=== PATIENT | male | born 1960 | race Caucasian/White ===

== ENCOUNTER 2024-06-06 23:42 | Emergency (ER) | payer MEDICAID, SELFPAY ==
[2024-06-06 23:44] VITALS: PULSE 84; RESP 16; O2SAT 98; BMI 21.9
[2024-06-06 23:50] VITALS: BP 160/84; PULSE 95; RESP 18; TEMP 37.1; O2SAT 98
--- NOTE | 2024-06-06 23:51 | PD.EDABDPN ---
ED Abdominal Pain RME/HPI General Chief Complaint: Abdominal Pain Stated complaint: ABDOMINAL DISTENSION Time seen by provider: 06/06/24 23:51 Arrival date/time: 06/06/24 23:42 RME / HPI RME / HPI narrative: This section includes all my notes and documentations, including HPI, PE, and ED course. Ramiro Castillo MD HPI: 64-year-old male here with a couple day history of feeling distended belly, worse tonight. He reports no pain. No nausea or vomiting. Eating normally. No other complaints. ROS: All negative except as documented in HPI. Physical Exam: General: Alert and oriented. No acute distress when remaining still. Eyes: Conjunctivae and lids clear. ENT: No nasal congestion. Neck: Supple. Heart: RRR. Lungs: No respiratory distress. Good air movement. No rhonchi, wheezing, rales. Abdomen: Soft and nontender. Normal bowel sounds. No distension. No rebound or guarding. Back: No CVA tenderness. Skin: Warm and dry. Neuro: Alert and oriented X 3. I reviewed all diagnostic test results. My interpretation of the KUB is constipation. Blood tests unremarkable. At this point, diagnoses include constipation. Recommended supportive care. Based on my best medical judgment, made decision no further evaluation or treatment indicated at this time. Patient understands and agrees to the discharge instructions customized and printed, see below. Discharge instructions from Dr. Castillo printed for you: ?After evaluation, you are feeling distended belly due to constipation (too much poop in your colon). ?Take Senokot S (not plain Senokot, OTC so prescription not needed) four pills, at bedtime as needed.? Add milk of magnesia as needed. May take a few days but this will help clear out your bowels. ?To help current constipation and prevent future constipation, increase oral fluid because dehydration cause severe constipation.? Maintain clear urine.? If dark or yellow, increase oral fluid. ?And every day, increase fresh fruits and fresh vegetables and physical exercise. ?See a private doctor on 06/12/2024 for recheck and further care. To make sure there is no serious underlying abdominal condition, ask to help you get more care not available here in the ER.? Such as EGD or scoping of your stomach, colonoscopy or scoping the colon, and a referral to see a sanding machine tender automatic. ?Seek immediate medical care with worsening or with any concerns. Ramiro Castillo MD Related Data Home Medications ?Medication ?Instructions ?Recorded ?Confirmed metformin 500 mg tablet 500 mg PO QDAY #0 tabs 09/07/16 12/15/17 (Glucophage) sitagliptin phosphate 100 mg 100 mg PO QDAY #0 tabs 09/07/16 12/15/17 tablet (Januvia) Previous Rx's ?Medication ?Instructions ?Recorded ibuprofen 600 mg tablet 600 mg PO Q6HR PRN PAIN #25 tabs 09/07/16 cephalexin 500 mg capsule (Keflex) 500 mg PO QID #28 caps 12/15/17 ibuprofen 600 mg tablet 600 mg PO TID #21 tabs 12/15/17 meloxicam 7.5 mg tablet 7.5 mg PO QDAY #14 tabs 01/13/22 magnesium hydroxide 2,400 mg/10 mL 30 ml PO QDAY PRN constipation #60 06/07/24 oral suspension (Milk Of Magnesia mL Concentrated) sennosides 8.6 mg-docusate sodium 4 tab-cap (4 x 8.6-50 mg) PO QDAY 06/07/24 50 mg tablet (Senokot-S) PRN constipation #20 tabs Allergies Allergy/AdvReac Type Severity Reaction Status Date / Time No Known Allergies Allergy Verified 01/13/22 10:14 Course Quality Measures none Orders Category Date Time Status KUB [XR abdomen 1V] Stat Exams 06/07/24 00:15 Completed Amylase Stat Lab 06/06/24 23:52 Completed Bilirubin,Direct Stat Lab 06/06/24 23:52 Completed CBC Stat Lab 06/06/24 23:52 Completed CMP [Comprehensive Metabolic Panel] Stat Lab 06/06/24 23:52 Completed Lipase Stat Lab 06/06/24 23:52 Completed Magnesium Stat Lab 06/06/24 23:52 Completed Vital Signs Vital signs: Vital Signs Temperature 98.8 F 06/06/24 23:50 Pulse Rate 95 06/06/24 23:50 Respiratory Rate 18 06/06/24 23:50 Blood Pressure 160/84 H 06/06/24 23:50 Pulse Oximetry (%) 98 06/06/24 23:50 Oxygen Delivery Method Room Air 06/06/24 23:50 Abdominal Pain MDM Patient data External records reviewed:: [facility] previous records Clinical information provided by:: patient Social determinants that could affect healthcare access:: none Patient has the following chronic illnesses:: DM How is presenting disease/condition affected by chronic disease/condition?: uneffected by Evaluation data The following diagnostics were reviewed and interpreted by me:: lab results and radiology exam(s) Lab and/or radiology exams considered but not ordered:: None Interpretation Summary: Constipation Medications / Prescriptions Medications or Prescriptions considered but not ordered:: None Medication administrations:: None Consultations Consultation(s) initiated? (list below): No Diagnosis Differential diagnosis abdominal pain: constipation, gastroenteritis and other (Psychogenic) Most likely diagnosis given after review of the tests above:: Constipation Admission Indicated Admission indicated?: not indicated Explain why admission is indicated or not indicated:: There was no indication for admission. Admission Request Was there a request for admission?: No Disposition Plan Disposition Plan: Discharge Discharge Attestation Discharge Attestation: The patient and all family members were given an opportunity to ask questions and understood the discharge instructions. Discharge instructions specifically effects, indications for sooner follow up or return to the emergency department, and the expected course of current diagnosis. Patient condition: Stable Discharge Plan Plan Patient Disposition: HOME (Self Care) Prescriptions/Referrals Prescriptions/Med Rec: New magnesium hydroxide [Milk Of Magnesia Concentrated] 2,400 mg/10 mL suspension 30 ml PO QDAY PRN (Reason: constipation) Qty: 60 0RF sennosides-docusate sodium [Senokot-S] 8.6-50 mg tablet 4 tab-cap PO QDAY PRN (Reason: constipation) Qty: 20 0RF No Action metformin [Glucophage] 500 MG tablet 500 mg PO QDAY Qty: 0 ibuprofen 600 MG tablet 600 mg PO Q6HR PRN (Reason: PAIN) Qty: 25 0RF sitagliptin phosphate [Januvia] 100 MG tablet 100 mg PO QDAY Qty: 0 cephalexin [Keflex] 500 mg capsule 500 mg PO QID Qty: 28 0RF ibuprofen 600 mg tablet 600 mg PO TID Qty: 21 0RF meloxicam 7.5 mg tablet 7.5 mg PO QDAY Qty: 14 0RF Referrals: No Primary/Family,Physician [Primary Care Provider] - In 1 week Problem List Clinical Impression: Constipation Patient/Caregiver Discharge Instructions Discharge Activity: activity as tolerated Education Materials: ED Constipation (Adult) Additional Instructions: Discharge instructions from Dr. Castillo printed for you: ?After evaluation, you are feeling distended belly due to constipation (too much poop in your colon). ?Take Senokot S (not plain Senokot, OTC so prescription not needed) four pills, at bedtime as needed.? Add milk of magnesia as needed. May take a few days but this will help clear out your bowels. ?To help current constipation and prevent future constipation, increase oral fluid because dehydration cause severe constipation.? Maintain clear urine.? If dark or yellow, increase oral fluid. ?And every day, increase fresh fruits and fresh vegetables and physical exercise. ?See a private doctor on 06/12/2024 for recheck and further care. To make sure there is no serious underlying abdominal condition, ask to help you get more care not available here in the ER.? Such as EGD or scoping of your stomach, colonoscopy or scoping the colon, and a referral to see a sanding machine tender automatic. ?Seek immediate medical care with worsening or with any concerns. Print Language: Nepalese Stand Alone Forms: [employer] Award Info., Patient Portal Info Letter
--- NOTE | 2024-06-07 00:15 | XR_ITS ---
Examination: Abdomen AP single view Technique: AP portable supine abdomen, single view Exam date and time: June 07, 2024 at 0016 hours INDICATIONS: Distended abdomen this week FINDINGS: Large amounts of stool throughout the colon No obstruction No free air Intact osseous structures IMPRESSION: Large amount of stool throughout the colon
[2024-06-07 00:17] LABS: Basophils % (Auto) 0 % (0-2.5); Eosinophils # (Auto) 0.1 Thou/mm3 (0.0-0.5); Eosinophils % (Auto) 1 % (0-10); Hematocrit 42.7 % (41.0-53.0); Immature Granulocytes % (Auto) 0 % (0-0); Immature Granulocytes Auto 0.03 Thou/mm3 (0.00-0.00); Lymphocytes # (Auto) 2.4 Thou/mm3 (1.0-4.8); Lymphocytes % (Auto) 19 % (10-50); Mean Corpuscular HGB Conc 35.1 g/dl (31.0-37.0); Mean Corpuscular Hemoglobin 29.4 pg (25.0-35.0); Mean Corpuscular Volume 84 fL (80-100); Monocytes # (Auto) 0.9 Thou/mm3 (0.0-0.8); Monocytes % (Auto) 7 % (0-12); Neutrophils # (Auto) 8.9 Thou/mm3 (1.8-7.7); Neutrophils % (Auto) 72 % (37-80); Nucleated Red Blood Cell % 0 /100 WBC (0); Platelet Count 306 Thou/mm3 (140-440); RDW Standard Deviation 40.4 fL (35.1-43.9); Red Blood Count 5.11 Miln/mm3 (4.50-5.90); White Blood Count 12.3 Thou/mm3 (3.8-10.6)
[2024-06-07 00:40] LABS: Alanine Aminotransferase 17 U/L (10-49); Albumin, Serum 4.4 gm/dL (3.4-4.8); Albumin/Globulin Ratio 1.3 (1.2-2.2); Alkaline Phosphatase 96 U/L (46-116); Anion Gap 10 (7-16); Aspartate Amino Transferase 20 U/L (0-34); BUN/Creatinine Ratio 17 Ratio (12-20); Bilirubin,Direct 0.2 mg/dL (0.0-0.3); Bilirubin,Total 0.8 mg/dL (0.3-1.2); Blood Urea Nitrogen 20 mg/dL (9-23); Carbon Dioxide 25.7 mMol/L (20.0-31.0); Chloride 104 mMol/L (98-107); Creatinine (Component) 1.2 mg/dL (0.6-1.3); Estimated Creatinine Clearance 52.4 mL/min (>60); Globulin 3.4 gm/dL (2.3-3.5); Glucose 123 mg/dL (74-106); Lipase 32 U/L (12-53); Osmolality,Calculated 283 (275-295); Potassium 4.2 mMol/L (3.4-5.1); Sodium 140 mMol/L (136-145); Total Protein 7.8 gm/dL (5.7-8.2); eGFR > 60 See Note
[2024-06-07 00:53] LABS: Amylase 70 U/L (30-118)
== END 2024-06-07 01:23 | disposition home or self-care (01) ==
PROVIDERS: Emergency Provider Emergency Medicine
DX: K59.00 Constipation, unspecified (principal)
CPT/HCPCS: 36415; 74018; 80053; 82150; 82248; 83690; 83735; 85025; 99283

== ENCOUNTER 2024-06-16 18:09 | Emergency (ER) | payer MEDICAID, SELFPAY ==
[2024-06-16 18:20] VITALS: PULSE 98; RESP 16; O2SAT 99
[2024-06-16 19:54] VITALS: BP 143/81; PULSE 84; RESP 18; TEMP 36.9; O2SAT 96
[2024-06-16] MEDS: LACTULOSE SYRUP 20 GM/30 ML UDC PO (20:32)
--- NOTE | 2024-06-17 04:06 | PD.EDADULT ---
ED General RME/HPI General Chief complaint: General Adult/Misc Complain Stated complaint: ABDOMINAL PROBLEMS Time Seen by Provider: 06/16/24 20:09 Arrival date/time: 06/16/24 18:09 64M history of DM presents to ED with several weeks of constipation. Patient was here 1 week ago and given laxatives, which helped some. Patient had a BM today, but it was only a little. Patient denies N/V, ab pain, and history of ab surgery. Limitations: no limitations Related Data Home Medications ?Medication ?Instructions ?Recorded ?Confirmed metformin 500 mg tablet 500 mg PO QDAY #0 tabs 09/07/16 12/15/17 (Glucophage) sitagliptin phosphate 100 mg 100 mg PO QDAY #0 tabs 09/07/16 12/15/17 tablet (Januvia) Previous Rx's ?Medication ?Instructions ?Recorded ibuprofen 600 mg tablet 600 mg PO Q6HR PRN PAIN #25 tabs 09/07/16 cephalexin 500 mg capsule (Keflex) 500 mg PO QID #28 caps 12/15/17 ibuprofen 600 mg tablet 600 mg PO TID #21 tabs 12/15/17 meloxicam 7.5 mg tablet 7.5 mg PO QDAY #14 tabs 01/13/22 magnesium hydroxide 2,400 mg/10 mL 30 ml PO QDAY PRN constipation #60 06/07/24 oral suspension (Milk Of Magnesia mL Concentrated) sennosides 8.6 mg-docusate sodium 4 tab-cap (4 x 8.6-50 mg) PO QDAY 06/07/24 50 mg tablet (Senokot-S) PRN constipation #20 tabs peg 3350-electrolytes 236 240 ml PO Q10M #4,000 mL 06/16/24 gram-22.74 gram-6.74 gram-5.86 gram solution (Golytely) Allergies Allergy/AdvReac Type Severity Reaction Status Date / Time No Known Allergies Allergy Verified 06/16/24 18:23 Review of Systems Review of Systems Systems Reviewed: All systems reviewed, normal except as documented Constitutional Constitutional: Reports system reviewed and no additional complaints, except as documented, Denies fever(s) and Denies headache(s) ENT Ears, Nose, Mouth, and Throat: Denies disequilibrium and Denies headache(s) Cardiovascular Cardiovascular: Reports system reviewed and no additional complaints, except as documented, Denies chest pain and Denies dyspnea Respiratory Respiratory: Reports system reviewed and no additional complaints, except as documented, Denies cough and Denies dyspnea Gastrointestinal Gastrointestinal: Reports system reviewed and no additional complaints, except as documented, Reports as per HPI, Denies abdominal pain, Reports constipation, Denies nausea and Denies vomiting Neurologic Neurologic: Reports system reviewed and no additional complaints, except as documented, Denies confusion, Denies disequilibrium and Denies headache(s) Psychiatric Psychiatric: Denies confusion Past Medical History Past Medical History CARDIAC: Negative Cardiac Disorders or Congestive Heart Failure RESPIRATORY: Negative Chronic Obstructive Pulmonary Disease (COPD) GENITOURINARY: Negative Renal Disease ENDOCRINE: Positive Endocrine Disorders and Diabetes Mellitus Type 2; Negative Diabetes Mellitus Type 1 Surgical History SURGICAL: Positive Eye Surgery (left eye x's 18) and Tonsillectomy Social History SMOKING STATUS: Never smoker ED Exam General Limitations: Present no limitations General appearance: Present alert and in no apparent distress Head Head exam: Present atraumatic Eye Eye exam: Present normal appearance, PERRL and EOMI ENT ENT exam: Present normal exam, normal oropharynx and mucous membranes moist Neck Neck exam: Present normal inspection, full ROM and trachea midline Chest Chest inspection: Present normal inspection and symmetric chest wall rise Respiratory Respiratory exam: Present normal lung sounds bilaterally Cardiovascular Cardiovascular exam: Present regular rate, normal rhythm and normal heart sounds Abdominal Exam Abdominal exam: Present soft and normal bowel sounds Extremities Exam Extremities exam: Present normal inspection and full ROM Back Exam Back exam: Present normal inspection and full ROM Neurological Exam Neurological exam: Present alert, oriented X3 and CN II-XII intact Psychiatric Psychiatric exam: Present normal affect and normal mood Skin Skin exam: Present warm, dry, intact and normal color Course Course Course Narrative: 64M with history of DM presents to ED with several weeks of constipation. Patient was here 1 week ago and given laxatives, which helped some. Patient had a BM today, but it was only a little. Patient denies N/V, ab pain, and history of ab surgery. Physical exam reveals no ab tenderness. Patient is afebrile, calm, and alert. Additional meds and enema given here allowed for some BM. Patient is ready to go home with additional meds. Will trial Golytely. Quality Measures none Orders Category Date Time Status Enema Administration NOW Care 06/16/24 20:10 Completed Lactulose Syrup [Enulose Syrup] Med 06/16/24 20:10 Discontinued 20 gm PO X1 ONE Vital Signs Vital signs: Vital Signs Temperature 98.4 F 06/16/24 19:54 Pulse Rate 84 06/16/24 19:54 Respiratory Rate 18 06/16/24 19:54 Blood Pressure 143/81 H 06/16/24 19:54 Pulse Oximetry (%) 96 06/16/24 19:54 Oxygen Delivery Method Room Air 06/16/24 19:54 O2 at 96% on RA and WNLs MDM Patient data External records reviewed:: [facility] previous records Clinical information provided by:: patient Social determinants that could affect healthcare access:: none Patient has the following chronic illnesses:: DM How is presenting disease/condition affected by chronic disease/condition?: exacerbated by Evaluation data The following diagnostics were reviewed and interpreted by me:: other (specify) (none) Lab and/or radiology exams considered but not ordered:: not ordered Interpretation Summary: n/a Medications Medications considered but not ordered:: ordered Medication administrations:: Medication Administration History Discontinued Medications Lactulose (Lactulose Syrup 20 Gm/30 Ml Udc) 20 gm PO X1 ONE; Protocol Stop: 06/16/24 20:11 Last Admin: 06/16/24 20:32 Dose: 20 gm Documented By: above Consultations Consultation(s) initiated? (list below): No Diagnosis Differential Diagnosis ED Complaint MDM: constipation, ab pain, SBO Most likely diagnosis given after review of the tests above:: constipation Admission Indicated Admission indicated?: not indicated Explain why admission is indicated or not indicated:: outpatient Admission Request Was there a request for admission?: No Disposition Plan Disposition Plan: Discharge Discharge Attestation Discharge Attestation: The patient and all family members were given an opportunity to ask questions and understood the discharge instructions. Discharge instructions specifically effects, indications for sooner follow up or return to the emergency department, and the expected course of current diagnosis. Patient condition: Stable Medical Decision Making Differential Diagnosis Differential Diagnosis: constipation, ab pain, SBO Discharge Plan Plan Patient Disposition: HOME (Self Care) Disposition Comment: Stable Prescriptions/Referrals Prescriptions/Med Rec: New peg 3350-electrolytes [Golytely] 236-22.74-6.74 -5.86 gram recon soln 240 ml PO Q10M Qty: 4000 0RF Rx Instructions: until fecal effluent is clear No Action metformin [Glucophage] 500 MG tablet 500 mg PO QDAY Qty: 0 ibuprofen 600 MG tablet 600 mg PO Q6HR PRN (Reason: PAIN) Qty: 25 0RF sitagliptin phosphate [Januvia] 100 MG tablet 100 mg PO QDAY Qty: 0 cephalexin [Keflex] 500 mg capsule 500 mg PO QID Qty: 28 0RF ibuprofen 600 mg tablet 600 mg PO TID Qty: 21 0RF magnesium hydroxide [Milk Of Magnesia Concentrated] 2,400 mg/10 mL suspension 30 ml PO QDAY PRN (Reason: constipation) Qty: 60 0RF sennosides-docusate sodium [Senokot-S] 8.6-50 mg tablet 4 tab-cap PO QDAY PRN (Reason: constipation) Qty: 20 0RF meloxicam 7.5 mg tablet 7.5 mg PO QDAY Qty: 14 0RF Referrals: No Primary/Family,Physician [Primary Care Provider] - In 1 week Problem List Clinical Impression: Constipation Patient/Caregiver Discharge Instructions Education Materials: ED Constipation (Adult) Additional Instructions: Please follow-up with PCP within 24-48 hours and return immediately if symptoms worsen. Print Language: Ugandan Stand Alone Forms: Patient Portal Info Letter PA/MANUFACTURING QUALITY MANAGER Supervising Physician LOLIS/ROSARIO Supervising Physician: Dr. Alvarez
== END 2024-06-16 22:35 | disposition home or self-care (01) ==
PROVIDERS: Emergency Provider Emergency Medicine
DX: K59.00 Constipation, unspecified (principal); E11.9 Type 2 diabetes mellitus without complications
CPT/HCPCS: 99283; A9270

== ENCOUNTER 2024-06-26 03:21 | Inpatient (IN) | payer MEDICAID, SELFPAY ==
[2024-06-26] VITALS (11 sets, daily range): BP systolic 122–156; BP diastolic 73–89; PULSE 54–86; RESP 17–93; TEMP 36.3–37.2; O2SAT 95–100; BMI 22.3
--- NOTE | 2024-06-26 03:35 | XR_ITS ---
Examination: PA lateral chest 2 views Technique: Upright PA lateral chest 2 views Exam date and time: June 26, 2024 0347 hrs. Comparison January 13, 2022 Indications: Shortness of breath today Findings: Cavitary-appearing parenchymal disease in the upper lung zones Mild prominence left ventricle Moderate osteopenia Impression: Cavitary parenchymal disease in the upper lung zones, differential would include active tuberculosis, consider CT chest without contrast follow-up
--- NOTE | 2024-06-26 03:35 | XR_ITS ---
Examination: Abdomen AP single view Technique: AP portable supine abdomen, single view Exam date and time: June 26, 2024 at 0344 hrs. Indications: Abdominal pain constipation beginning 3 days ago. Findings: Abundant stool throughout the colon I do not visualize a definite small bowel obstruction pattern No free air Impression: Abundant stool throughout the colon
--- NOTE | 2024-06-26 03:35 | EKG_ITS ---
[facility] Test Date: 2024-06-26 Pat Name: GUERO SNOW Department: Room: - Gender: Male Data Acquisition Technician: : 1960 Requested By: Aaron Woods Order Number: [id number] Reading MD: Aaron Woods Measurements Intervals Tell Rate: 70 P: 6 SD: 176 QRS: -5 QRSD: 82 T: -14 QT: 368 QTc: 398 Interpretive Statements SINUS RHYTHM No previous ECG available for comparison /store/S0/[id number]/ecg/[id number].pdf
--- NOTE | 2024-06-26 03:36 | PD.EDRME ---
Rapid Medical Screening Exam RME Arrival date/time: 06/26/24 03:21 64 yo m present to ED for c/o of sob, constipation I have greeted and performed a focused initial assessment of this patient. A comprehensive ED assessment and evaluation of the patient, analysis of all test results, and completion of the medical decision making process will be conducted by additional ED providers. Chief Complaint: General Adult/Misc Complain Time Seen by Provider: 06/26/24 03:25
[2024-06-26] MEDS: ALBUTEROL/IPRATROPIUM (Duoneb) RT SOL 3 ML NEBU INH (04:12)
--- NOTE | 2024-06-26 05:08 | PRELIM_ITS ---
Radiographs of the chest (2 views). June 26, 2024 0344 hours Clinical history: Shortness of breath Comparison: None. Findings: The heart, mediastinum and pulmonary gildardo are unremarkable. No pneumothorax. Probable cavitated lesion in the right upper lung. Left upper lung consolidation. There is no pleural effusion. The bony thorax is unremarkable. Impression: Probable cavitated lesion in the right upper lung, correlation with CT is recommended. Left upper lung consolidation suspicious for pneumonia. Discussion Details: Results verbally communicated to : Dr. Ferrell at 04:56 AM 06/26/2024 Report Electronically Signed By: Michel Rizvi 06/26/2024 5:07:11 AM [EST]
--- NOTE | 2024-06-26 05:17 | PRELIM_ITS ---
Radiograph of the abdomen (single view). June 26, 2024 at 0344 hours Clinical history: Abdominal pain, constipation for 3 days. Comparison: No prior study is available for comparison. Findings: Scattered air-fluid levels throughout the abdomen. There is no free intraperitoneal air. The osseous structures are unremarkable. Impression: Bowel findings are compatible with enteritis versus developing small bowel obstruction. Consider correlation with CT of the abdomen and pelvis. Report Electronically Signed By: Michel Rizvi 06/26/2024 5:16:49 AM [EST]
[2024-06-26 05:25] LABS: Basophils % (Auto) 0 % (0-2.5); Eosinophils # (Auto) 0.2 Thou/mm3 (0.0-0.5); Eosinophils % (Auto) 2 % (0-10); Hematocrit 43.3 % (41.0-53.0); Hemoglobin 14.6 g/dL (13.5-16.0); Immature Granulocytes % (Auto) 0 % (0-0); Immature Granulocytes Auto 0.04 Thou/mm3 (0.00-0.00); Lymphocytes # (Auto) 2.8 Thou/mm3 (1.0-4.8); Lymphocytes % (Auto) 25 % (10-50); Mean Corpuscular HGB Conc 33.7 g/dl (31.0-37.0); Mean Corpuscular Hemoglobin 29.4 pg (25.0-35.0); Mean Corpuscular Volume 87 fL (80-100); Monocytes # (Auto) 0.9 Thou/mm3 (0.0-0.8); Monocytes % (Auto) 8 % (0-12); Neutrophils # (Auto) 7.3 Thou/mm3 (1.8-7.7); Neutrophils % (Auto) 65 % (37-80); Nucleated Red Blood Cell % 0 /100 WBC (0); Platelet Count 314 Thou/mm3 (140-440); RDW Standard Deviation 40.5 fL (35.1-43.9); Red Blood Count 4.96 Miln/mm3 (4.50-5.90); White Blood Count 11.2 Thou/mm3 (3.8-10.6)
[2024-06-26 05:53] LABS: B-Type Natriuretic Peptide < 20 pg/mL (0-100)
[2024-06-26 05:56] LABS: Alanine Aminotransferase 21 U/L (10-49); Albumin, Serum 4.2 gm/dL (3.4-4.8); Albumin/Globulin Ratio 1.4 (1.2-2.2); Alkaline Phosphatase 92 U/L (46-116); Anion Gap 9 (7-16); Aspartate Amino Transferase 20 U/L (0-34); BUN/Creatinine Ratio 9 Ratio (12-20); Bilirubin,Total 0.6 mg/dL (0.3-1.2); Blood Urea Nitrogen 11 mg/dL (9-23); Calcium 9.1 mg/dL (8.3-10.6); Calcium (Corrected) 9.1 mg/dL (8.5-10.1); Carbon Dioxide 26.7 mMol/L (20.0-31.0); Chloride 105 mMol/L (98-107); Creatinine (Component) 1.2 mg/dL (0.6-1.3); Estimated Creatinine Clearance 53.2 mL/min (>60); Glucose 154 mg/dL (74-106); Lipase 32 U/L (12-53); Osmolality,Calculated 283 (275-295); Sodium 141 mMol/L (136-145); Total Protein 7.2 gm/dL (5.7-8.2); Troponin I < 0.020 ng/mL (0.0-0.045); eGFR > 60 See Note
--- NOTE | 2024-06-26 06:52 | XR_ITS ---
Examination: CT chest, without intravenous contrast. Sagittal and coronal 2-D reconstructions. Exam date and time: June 26, 2024 1908 hrs. Indications: Shortness of breath fever today CTDI:vol (mGy) 10.7 DLP: (mGycm) 380 Technique: Multiple 3.0 mm axial sections of the chest to been obtained. Bone and lung density settings are obtained. Sagittal and coronal 2-D reconstructions have been obtained. Low dose protocols were performed. One or more of the following dose reduction techniques were used; automated exposure control, adjustment of the mA and/or KV according to patient size, use of iterative reconstruction technique. Findings: No thoracic aortic aneurysm dilatation Pulmonary artery segments are not enlarged Cavitary parenchymal disease at both lung apices, the largest cavity 17 mm in the left upper lobe Dilated bronchi in the upper lobes Scarring in the lingular segment No pleural disease No pulmonary edema No focal liver or splenic lesion Contracted gallbladder No pancreatic mass End-stage atrophic left kidney The osseous structures are intact Impression: Cavitary parenchymal disease at both lung apices, likely infectious in etiology, highest on the differential list is active tuberculosis
--- NOTE | 2024-06-26 07:00 | PC.NURSE ---
ASSUMED CARE OF PT. PT IS BEING TAKEN TO CT VIA W/C.
--- NOTE | 2024-06-26 07:11 | PD.EDABDPN ---
ED Abdominal Pain RME/HPI General Chief Complaint: General Adult/Misc Complain Stated complaint: constipation Time seen by provider: 06/26/24 03:25 Arrival date/time: 06/26/24 03:21 RME / HPI RME / HPI narrative: 06/26/24 03:21 64 yo m present to ED for c/o of sob, constipation I have greeted and performed a focused initial assessment of this patient. A comprehensive ED assessment and evaluation of the patient, analysis of all test results, and completion of the medical decision making process will be conducted by additional ED providers. DR. TERRELL MAIN ED EVALUATION: 64 year old male presents to the Emergency Department [facility] with complaints of abdominal pain with constipation. Patient sates he is only short of breath because his belly is so full . No fevers or chills. No other symptoms reported at this time. PMHx: Diabetes Social Hx: No tobacco, alcohol, or substance use. Related Data Home Medications ?Medication ?Instructions ?Recorded ?Confirmed metformin 500 mg tablet 500 mg PO QDAY #0 tabs 09/07/16 12/15/17 (Glucophage) sitagliptin phosphate 100 mg 100 mg PO QDAY #0 tabs 09/07/16 12/15/17 tablet (Januvia) Previous Rx's ?Medication ?Instructions ?Recorded ibuprofen 600 mg tablet 600 mg PO Q6HR PRN PAIN #25 tabs 09/07/16 cephalexin 500 mg capsule (Keflex) 500 mg PO QID #28 caps 12/15/17 ibuprofen 600 mg tablet 600 mg PO TID #21 tabs 12/15/17 meloxicam 7.5 mg tablet 7.5 mg PO QDAY #14 tabs 01/13/22 magnesium hydroxide 2,400 mg/10 mL 30 ml PO QDAY PRN constipation #60 06/07/24 oral suspension (Milk Of Magnesia mL Concentrated) sennosides 8.6 mg-docusate sodium 4 tab-cap (4 x 8.6-50 mg) PO QDAY 06/07/24 50 mg tablet (Senokot-S) PRN constipation #20 tabs peg 3350-electrolytes 236 240 ml PO Q10M #4,000 mL 06/16/24 gram-22.74 gram-6.74 gram-5.86 gram solution (Golytely) Allergies Allergy/AdvReac Type Severity Reaction Status Date / Time No Known Allergies Allergy Verified 06/16/24 18:23 Review of Systems Review of Systems Systems Reviewed: All systems reviewed, normal except as documented Past Medical History Past Medical History ENDOCRINE: Positive Endocrine Disorders and Diabetes Mellitus Type 2 Surgical History SURGICAL: Positive Eye Surgery and Tonsillectomy Social History SMOKING STATUS: Never smoker SUBSTANCE USE: does not use ALCOHOL: Never ED Exam Narrative Physical exam: GENERAL APPEARANCE: alert and oriented x 4, well-developed, well-nourished, no acute distress VITALS: All vitals were reviewed and the pulse ox is 95% on room air, which is normal according to my interpretation. HEENT: Normocephalic, atraumatic; pupils equal, round, reactive to light; EOMI; mucous membranes pink, moist; oropharynx clear NECK: Supple LUNGS: CTABL; no wheezes, no rales, no rhonchi HEART: Regular rate, regular rhythm; normal S1, S2; no murmurs ABDOMEN: mildly distended; normal BS; soft, no tenderness, no guarding, no rebound; no masses, no organomegaly, no hernia BACK: no CVA tenderness EXTREMITIES: atraumatic; no edema NEUROLOGIC: awake; alert and oriented x4; cranial nerves II-XII grossly intact; no focal sensory or motor deficits PSYCHIATRIC: appropriate mood and affect SKIN: warm, dry, normal color; no rashes Course Quality Measures none Orders Category Date Time Status Admit to Inpatient Status Routine Admission 06/26/24 09:25 Active Patient Condition Routine Admission 06/26/24 09:[address] Screening NOW Care 06/26/24 05:38 Completed EKG (ED ONLY) *Do not use* NOW Care 06/26/24 03:35 Completed Notify provider NEEDED Care 06/26/24 09:[address] chest wo con Stat Exams 06/26/24 06:52 Completed EKG (ED Only) Stat Exams 06/26/24 03:35 Draft KUB [XR abdomen 1V] Stat Exams 06/26/24 03:35 Completed XR chest 2V Stat Exams 06/26/24 03:35 Completed BNP [B-Type Natriuretic Peptide] Stat Lab 06/26/24 04:36 Completed CBC Stat Lab 06/26/24 04:36 Completed CMP [Comprehensive Metabolic Panel] Stat Lab 06/26/24 04:36 Completed Cocci Serology, Unk History Stat Lab 06/26/24 06:01 Received Lipase Stat Lab 06/26/24 04:36 Completed Quantiferon-TB* Stat Lab 06/26/24 06:01 Received Troponin I Stat Lab 06/26/24 04:36 Completed Albuterol/Ipratr Rt Tosin [Duoneb Rt Tosin] Med 06/26/24 03:38 Discontinued 3 ml INH X1 ONE Code Status Routine Oth 06/26/24 09:24 Ordered Vital Signs Vital signs: Vital Signs Temperature 98.5 F 06/26/24 03:37 Pulse Rate 75 06/26/24 03:37 Respiratory Rate 17 06/26/24 03:37 Blood Pressure 156/83 H 06/26/24 03:37 Pulse Oximetry (%) 99 06/26/24 03:37 Oxygen Delivery Method Room Air 06/26/24 03:37 Abdominal Pain MDM MDM Narrative MDM Narrative:: I, Caridad Garcia, alber scribing for and in the presence of Dr. Terrell. Patient data External records reviewed:: EMS form Clinical information provided by:: patient and EMS Social determinants that could affect healthcare access:: none Patient has the following chronic illnesses:: Diabetes How is presenting disease/condition affected by chronic disease/condition?: uneffected by Evaluation data The following diagnostics were reviewed and interpreted by me:: lab results, radiology exam(s) and EKG tracing(s) (EKG#1: EKG at 0341 hours. Interpreted by me: sinus rhythm, rate 70, moderate artifact) Lab and/or radiology exams considered but not ordered:: none Interpretation Summary: Procedure(s): XR chest 2V Accession Number(s): [id number] cc: Sylvester Henry MD; NO PRIMARY/FAMILY,PHYSICIAN; Aaron Dolan PA-C~ Examination: PA lateral chest 2 views Technique: Upright PA lateral chest 2 views Exam date and time: June 26, 2024 0347 hrs. Comparison January 13, 2022 Indications: Shortness of breath today Findings: Cavitary-appearing parenchymal disease in the upper lung zones Mild prominence left ventricle Moderate osteopenia Impression: Cavitary parenchymal disease in the upper lung zones, differential would include active tuberculosis, consider CT chest without contrast follow-up Dictated By: Sylvester Henry MD Procedure(s): XR abdomen 1V Accession Number(s): [id number] cc: Sylvester Henry MD; NO PRIMARY/FAMILY,PHYSICIAN; Aaron Dolan PA-C~ Examination: Abdomen AP single view Technique: AP portable supine abdomen, single view Exam date and time: June 26, 2024 at 0344 hrs. Indications: Abdominal pain constipation beginning 3 days ago. Findings: Abundant stool throughout the colon I do not visualize a definite small bowel obstruction pattern No free air Impression: Abundant stool throughout the colon Dictated By: Sylvester Henry MD Procedure(s): CT chest wo con Accession Number(s): [id number] cc: Sylvester Henry MD; NO PRIMARY/FAMILY,PHYSICIAN; Evelia Terrell MD~ Examination: CT chest, without intravenous contrast. Sagittal and coronal 2-D reconstructions. Exam date and time: June 26, 2024 1908 hrs. Indications: Shortness of breath fever today CTDI:vol (mGy) 10.7 DLP: (mGycm) 380 Technique: Multiple 3.0 mm axial sections of the chest to been obtained. Bone and lung density settings are obtained. Sagittal and coronal 2-D reconstructions have been obtained. Low dose protocols were performed. One or more of the following dose reduction techniques were used; automated exposure control, adjustment of the mA and/or KV according to patient size, use of iterative reconstruction technique. Findings: No thoracic aortic aneurysm dilatation Pulmonary artery segments are not enlarged Cavitary parenchymal disease at both lung apices, the largest cavity 17 mm in the left upper lobe Dilated bronchi in the upper lobes Scarring in the lingular segment No pleural disease No pulmonary edema No focal liver or splenic lesion Contracted gallbladder No pancreatic mass End-stage atrophic left kidney The osseous structures are intact Impression: Cavitary parenchymal disease at both lung apices, likely infectious in etiology, highest on the differential list is active tuberculosis Dictated By: Sylvester Henry MD Medications / Prescriptions Medications or Prescriptions considered but not ordered:: none Medication administrations:: Medication Administration History Discontinued Medications Albuterol/Ipratropium (Albuterol/Ipratropium (Duoneb) Rt Tosin 3 Ml Nebu) 3 ml INH X1 ONE Stop: 06/26/24 03:39 Last Admin: 06/26/24 04:12 Dose: 3 ml Documented By: ADDISON see above Consultations Consultation(s) initiated? (list below): Yes Consultation #1 (Physician, Specialty, Details): Discussed test HPI, PMHx, lab, radiology results and/or management with hospitalist. Will admit for further evaluation and management. Accepts patient for admission. Time: 10:22 Diagnosis Differential diagnosis abdominal pain: abdominal pain, constipation and small bowel obstruction Most likely diagnosis given after review of the tests above:: Cavitary lung disease Admission Indicated Admission indicated?: indicated Admission Request Was there a request for admission?: Yes Admission Attestation Admission request attestation: Discussed case with [] from Hospitalist service regarding admission. Discussed patients ED course, exam findings, labs, and radiology results. The Hospitalist [agrees,declines] to accept the patient for admission. Disposition Plan Disposition Plan: Admit Discharge Plan Plan Patient Disposition: Admit Acute Care w/in Hospital Problem List Clinical Impression: Cavitary lung disease
[2024-06-26] MEDS: ACETAMINOPHEN 325 MG TABLET 650 MG PO ×2 (13:31→20:53)
[2024-06-26] MEDS: Lisinopril 2.5 MG TABLET PO (13:45)
--- NOTE | 2024-06-26 14:19 | PC.NURSE ---
REPORT CALLED TO BREN OBRIEN ON MED SURG. ALL QUESTIONS ANSWERED.
[2024-06-26] MEDS: cefTRIAXone/D5w 1gm IV premix 1 GM/50 ML BAG IV (14:35)
[2024-06-26 14:49] LABS: Cocci Serology, IgM Negative (Negative)
--- NOTE | 2024-06-26 14:51 | ESHP_ITS ---
<Statement entered by Barron Schwartz MD - 06/30/24 12:59> I reviewed above note and agree with findings and plans. I have also personally examined the patient with medicine team and went over assessment and plan with medical team including manager of international and resident physician. Documentation for date of: 06/26/24 Senior resident attestation: The patient is 64-year-old male, past medical diabetes mellitus type 2, hypertension hyperlipidemia, presented with chief complaint of constipation, but found to have cavitary lesions bilateral lung apices on CT chest. Of note patient had prior chest imaging in 2021 which also showed cavitary chest lesion. 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 Cocci IgM ordered which was negative. Will admit patient for sputum AFB to rule out tuberculosis, negative pressure isolation precautions in place. Patient evaluated and examined at the bedside, plan of care discussed with rest of the team including my attending physician, except as noted. Quresh PGY2 HPI History of Present Illness History of present illness: CC: Constipation Patient is a 64-year-old male with a past medical history of diabetes mellitus type 2 insulin-dependent?on glargine 40 units at bedtime?, hypertension, and hyperlipidemia. Patient presented to the emergency room from home with a chief complaint of constipation and abdominal tenderness diffuse. Patient denied any change in bowel consistency. Patient denied any melena or hematochezia. Patient denied any diarrhea. patient denied any fevers or chills at home. Patient denied any recent sick contacts with anyone with the flu or COVID. Patient denied ever having tuberculosis. Patient has never been diagnosed previously with cocci. Patient denied any autoimmune conditions, such as sarcoidosis. Patient denied any fatigue or weakness. ER course: Vitals 156/83, HR 75, RR 17, T98.5. CBC significant for elevated WBC count of 11.2. Patient CMP within normal limits including sodium, potassium, and bicarb. No ANGELITA noted. GFR greater than 60. Glucose 154. AST and ALT within normal limits. BNP less than 20. Troponin unremarkable. EKG sinus rhythm, QRSD 82, QT corrected 398. No QT elongation noted. Chest CT noted for cavitary parenchymal disease of both lung apices, the largest cavity 17 mm in the left upper lobe. Bilateral bronchi in the upper lobes. Scarring in the lingular segment. End-stage atrophic left kidney. Patient admitted as a TB rule out on 06/26/2024. PMH: Diabetes Mellitus Type 2 Insulin Dependent HTN Hyperlipidemia Past Surgical History: None Home Medication: Glargine 40 units HS Lispro 14 units TID Fargixa 5 mg Qday Rosuvastatin 5 mg HS Social History: [employer], recently retired Never Smoker Denied Illicit Drug Use Denied Alcohol Use Allergies: None Code Status: Full Code Review of Systems Review of Systems Narrative Review of Systems: General appearance: NO weight change, NO fatigue, NO weakness, NO fever, NO chills, NO night sweats, Yes cough-occasional Skin: NO rash, NO itching, NO sores, NO moles HEENT: NO Trauma, NO nausea, NO vomiting, NO visual changes, NO blurry vision, NO double vision, NO tinnitus, NO vertigo, NO ear discharge, NO rhinorrhea, NO stuffiness, NO sneezing, NO allergy, NO epistaxis. NO Hoarseness, NO sore throat, NO swollen neck. Cardiac: NO Palpitations, NO dyspnea on exertion, NO orthopnea, NO paroxysmal nocturnal dyspnea, NO edema Respiratory: NO Shortness of Breath, NO Wheezing, NO Cough, NO Sputum, NO hemoptysis GI:NO appetite, NO nausea, NO vomiting, NO dysphagia, NO changes in bowel frequency, NO stool color, NO diarrhea, YES constipation, NO hemetemesis, NO hemorrhoids, NO melena, NO hematechezia, NO abdominal pain, NO jaundice Renal: NO frequency, NO hesitancy, NO urgency, NO hematuria, NO nocturia, NO incontinence MSK: NO muscle weakness, NO gout, NO arthritis, NO muscle stiffness Neuro: NO headaches, NO tremors, NO weakness, NO paralysis, NO seizures, NO loss of consciousness, NO numbness. Hem: NO anemia, NO easy bruising/bleeding, NO petechiae, NO purpura Endo: NO heat/cold intolerance, NO excessive sweating, NO polyuria, NO polydipsia, NO polyphagia, NO thyroid problems, NO diabetes Pysch: NO mood, NO anxiety, NO depression Exam Vital Signs Temp Pulse Resp BP Pulse Ox O2 Del Method 98 F 86 18 140/77 H 96 Room Air 06/26/24 14:14 06/26/24 14:14 06/26/24 14:14 06/26/24 14:14 06/26/24 14:14 06/26/24 14:14 Narrative Exam General Appearance: Alert & Oriented X3, well-nourished male who is lying in bed in no acute distress HEENT: Skull symmetrical and atraumatic. Conjunctivae pin and moist. Pupils equal, round, reactive to light and accommodation (PERRL). External ear without lesion or discharge. Straight, nares patient, mucosa pink, no discharge. No thyroid nodule appreciated. No cervical lymphadenopathy. Cardio: Normal Rate and Rhythm with S1 and S2 heart sounds. No murmurs or extra heart sounds auscultated. No bruits on carotid auscultation. No peripheral edema or cyanosis. Lungs: Symmetric with good expansion. Chest and back non-tender. Breath sounds vesicular without crackles, wheezing or rhonchi Abdomen: Non-tender, Non-distended, Normal Reactive Bowel Sounds Neuro: Alert, cooperative, oriented to person, place, and time. Speech clear. CN grossly intact. Upper motor strength 5/5 and Lower motor strength 5/5. Sensation intact. Results: Labs 06/27/24 05:30 06/27/24 05:30 Labs: Short CBC 06/26/24 Range/Units 04:36 WBC 11.2 H (3.8-10.6) Thou/mm3 Hgb 14.6 (13.5-16.0) g/dL Hct 43.3 (41.0-53.0) % Plt Count 314 (140-440) Thou/mm3 [facility] 06/26/24 04:36 Sodium 141 Potassium 4.0 Chloride 105 Carbon Dioxide 26.7 BUN 11 Creatinine 1.2 Glucose 154 H Calcium 9.1 Cardiac Enzymes 06/26/24 Range/Units 04:36 Troponin I < 0.020 (0.0-0.045) ng/mL Liver Function 06/26/24 Range/Units 04:36 Total Bilirubin 0.6 (0.3-1.2) mg/dL AST 20 (0-34) U/L ALT 21 (10-49) U/L Alkaline Phosphatase 92 (46-116) U/L Albumin 4.2 (3.4-4.8) gm/dL Quality Measures Quality Measures none Medications Home Medications and Allergies Home Medications ?Medication ?Instructions ?Recorded ?Confirmed ?Type metformin 500 mg tablet 500 mg PO QDAY #0 tabs 09/0712/15/17 History (Glucophage) sitagliptin phosphate 100 mg 100 mg PO QDAY #0 tabs 12/15/17 History tablet (Januvia) dapagliflozin propanediol 5 mg 5 mg PO QDAY 06/26/24 0 06/26/24 History tablet (Farxiga) insulin glargine 100 unit/mL 40 unit subcut QPM 06/26/24 History subcutaneous solution (Lantus U-100 Insulin) insulin lispro 100 unit/mL 14 unit subcut TID 06/26/24 06/26/24 History subcutaneous pen (Humalog KwikPen (U-100) Insulin) Allergies Allergy/AdvReac Type Severity Reaction Status Date / Time No Known Allergies Allergy Verified 06/16/24 18:23 Visit Medications Acetaminophen (Acetaminophen 325 Mg Tablet) 650 mg PO Q6H PRN PRN Reason: Mild Pain 1-3 or Fever >100.3 Stop: 07/26/24 12:05 Last Admin: 06/26/24 13:31 Dose: 650 mg Atorvastatin Calcium (Atorvastatin Calcium 10 Mg Tablet) 10 mg PO HS CELIO Stop: 07/26/24 20:59 Dextrose (Dextrose 50%-Water Inj 50 Ml Syringe) 25 ml IV Q15MIN PRN PRN Reason: BG 50-70 responsive npo pt Stop: 07/26/24 12:10 Dextrose (Dextrose 50%-Water Inj 50 Ml Syringe) 50 ml IV Q15MIN PRN PRN Reason: BG <50 OR BG <70 & pt unresponsive Stop: 07/26/24 12:10 Glucagon (Glucagon Inj 1 Mg Vial) 1 mg IM Q15MIN PRN PRN Reason: BG <70, and no IV access Heparin Sodium (Porcine) (Heparin Sod Inj 5000 Unit/Ml Vial) 5,000 unit SC Q12HR CELIO Stop: 07/10/24 20:59 Ceftriaxone Sodium/Dextrose (Rocephin/D5w 1gm Iv Premix) 1 gm in 50 mls @ 100 mls/hr IV QDAY@1400 CELIO Stop: 07/03/24 13:22 Last Admin: 06/26/24 14:35 Dose: 100 mls/hr Azithromycin 500 mg/ Sodium (Chloride) 250 mls @ 250 mls/hr IV QDAY@1400 CELIO Stop: 07/04/24 13:59 Insulin Glargine (Insulin Glargine (Lantus) 5 Unit/0.05 Ml (Per 5 Units)) 20 unit SC HS [facility] Stop: 07/26/24 20:59 Insulin Human Lispro (Insulin Lispro (Admelog) 1 Unit/0.01 Ml Unit) 0 unit SC ACHS [facility]; Protocol Stop: 07/26/24 16:59 Lactulose (Lactulose Syrup 20 Gm/30 Ml Udc) 10 gm PO QID [facility]; Protocol Stop: 07/26/24 16:59 Lisinopril (Lisinopril 2.5 Mg Tablet) 2.5 mg PO QDAY [facility] Stop: 07/26/24 13:29 Last Admin: 06/26/24 13:45 Dose: 2.5 mg Ondansetron HCl (Ondansetron Inj 2 Mg/Ml Inj 2 Ml) 4 mg IV Q6H PRN; Protocol PRN Reason: NAUSEA OR VOMITING Stop: 07/26/24 12:05 Sennosides (Senna Tablet) 1 tab PO QDAY PRN; Protocol PRN Reason: constipation Stop: 07/26/24 12:05 Discontinued Medications Albuterol/Ipratropium (Albuterol/Ipratropium (Duoneb) Rt Tosin 3 Ml Nebu) 3 ml INH X1 ONE Stop: 06/26/24 03:39 Last Admin: 06/26/24 04:12 Dose: 3 ml Azithromycin 500 mg/ Sodium (Chloride) 250 mls @ 250 mls/hr IV X1 ONE Stop: 06/26/24 14:44 Sodium Chloride (Sodium Chloride Rt 10% 15 Ml Nebu) 5 ml INH X1 ONE Stop: 06/26/24 12:17 Last Admin: 06/26/24 14:33 Dose: Not Given Sodium Chloride (Sodium Chloride Rt 10% 15 Ml Nebu) 5 ml INH X1 ONE Stop: 06/26/24 14:44 Assessment & Plan Plan Patient is a 64-year-old male with a past medical history of diabetes mellitus type 2 insulin-dependent?on glargine 40 units at bedtime?, hypertension, and hyperlipidemia who was admitted for TB rule out showing cavitary lesions on both lung apices on CT chest. #TB Rule Out Vs cocci #Leukocytosis Patient denied history of TB or history of Cocci. 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 Patient denied history of cancer. Autoimmune causes can not be ruled out such as sarcidosis, but this is less likely given calcium is within normal limits. Pneumonia less likely but can not be excluded. Chest X-ray: Cavitary-appearing parenchymal disease in the upper lung zones & Mild prominence left ventricle CT Chest: Cavitary parenchymal disease at both lung apices, the largest cavity 17 mm in the left upper lobe. Dilated bronchi in the upper lobes. Plan -Isolation Precautions. -Sputum AFB 3 -Sputum Culture -Flu, Covid, Legionella -Cocci peniding -TB Test pending -Azimthromycin & Ceftriaxone 06/26/2024-- (july D/C tomorrow) #Diabetes Mellitus Type 2 Insulin Dependent Patient has a past medical history of Diabetes Mellitus Type 2 on insulin. Glargine 40 units HS, Fargixa, and Lispro 14 units. Patient is not sure of his A1c at home. Patient follows with a medical provider in [facility]. Hold Fargixa Diagnostics: Glucose 154 Plan -Glargine 20 HS -Lispro Sliding Scale -Consider adding schedule Lispro, based on morning labs. -A1c -carb consistent low -Montior fasting blood glucose #Hyperlipidemia Patient has a past medical history of HLD, home medication of Rosuvastatin 5 mg HS. Plan -Lipid Panel -Hold Rosuvastin 5 mg HS -Atorvastatin 10 mg HS #Hypertension Patient stated he uses Fargixa as a his home medication for his hypertension, although Fargixa is used CKD or diabetic patients. Patient was not sure if he took other medication for hypertension. Plan -Lisinopril 2.5 mg Qday -Monitor Blood Pressure #Constipation Plan -Senna PRN -lactulose TID CELIO #Incidental finding of, End-stage atrophic left kidney Health Maintenance: Disp: Pt is currently admitted to floors for further management of TB rule out given cavitary lesion , awaiting cocci & TB FEN: Low Carb Consistent Low DVT: on subQ heparin Code: Full Code - The patient's plan was discussed with attending and Frankie Bernal MD PGY1 Internal Medicine
[2024-06-26] MEDS: LACTULOSE SYRUP 20 GM/30 ML UDC 10 GM PO ×2 (17:08→20:53)
[2024-06-26] MEDS: AZITHROMYCIN INJ 500 MG in SODIUM CHLORIDE 0.9% 250 ML 250 ML 250 MG IV (17:08)
[2024-06-26] MEDS: INSULIN LISPRO (AdmeLOG) 1 UNIT/0.01 ML UNIT SC ×2 (18:01→20:57)
[2024-06-26] MEDS: ATORVASTATIN CALCIUM 10 MG TABLET PO (20:53)
[2024-06-26] MEDS: HEPARIN SOD INJ 5000 UNIT/ML VIAL SC (20:57)
[2024-06-26] MEDS: INSULIN GLARGINE (Lantus) 5 UNIT/0.05 ML (PER 5 UNITS) 20 UNIT SC (20:57)
[2024-06-27] VITALS (10 sets, daily range): BP systolic 113–144; BP diastolic 69–83; PULSE 57–86; RESP 17–98; TEMP 36.2–36.8; O2SAT 95–98; BMI 22.1
[2024-06-27] MEDS: SODIUM CHLORIDE RT 10% 15 ML NEBU INH (04:37)
[2024-06-27 05:11] LABS: Cult AFB Sendout- Sputum* See Sep Rpt
[2024-06-27] MEDS: LACTULOSE SYRUP 20 GM/30 ML UDC 10 GM PO ×4 (05:21→20:27)
[2024-06-27 06:03] LABS: Basophils % (Auto) 0 % (0-2.5); Eosinophils # (Auto) 0.2 Thou/mm3 (0.0-0.5); Eosinophils % (Auto) 2 % (0-10); Hemoglobin 14.5 g/dL (13.5-16.0); Immature Granulocytes % (Auto) 0 % (0-0); Immature Granulocytes Auto 0.03 Thou/mm3 (0.00-0.00); Lymphocytes # (Auto) 1.9 Thou/mm3 (1.0-4.8); Lymphocytes % (Auto) 22 % (10-50); Mean Corpuscular HGB Conc 33.7 g/dl (31.0-37.0); Mean Corpuscular Hemoglobin 29.5 pg (25.0-35.0); Mean Corpuscular Volume 87 fL (80-100); Monocytes # (Auto) 0.8 Thou/mm3 (0.0-0.8); Monocytes % (Auto) 9 % (0-12); Neutrophils # (Auto) 5.8 Thou/mm3 (1.8-7.7); Neutrophils % (Auto) 67 % (37-80); Nucleated Red Blood Cell % 0 /100 WBC (0); Platelet Count 300 Thou/mm3 (140-440); RDW Standard Deviation 40.5 fL (35.1-43.9); Red Blood Count 4.92 Miln/mm3 (4.50-5.90); White Blood Count 8.7 Thou/mm3 (3.8-10.6)
[2024-06-27 06:18] LABS: Glucose Estimated Average 212 mg/dL (80-131)
[2024-06-27 06:26] LABS: Alanine Aminotransferase 15 U/L (10-49); Albumin, Serum 4.1 gm/dL (3.4-4.8); Albumin/Globulin Ratio 1.4 (1.2-2.2); Alkaline Phosphatase 88 U/L (46-116); Anion Gap 7 (7-16); Aspartate Amino Transferase 14 U/L (0-34); BUN/Creatinine Ratio 13 Ratio (12-20); Bilirubin,Total 0.8 mg/dL (0.3-1.2); Blood Urea Nitrogen 15 mg/dL (9-23); Calcium 9.2 mg/dL (8.3-10.6); Calcium (Corrected) 9.2 mg/dL (8.5-10.1); Carbon Dioxide 25.4 mMol/L (20.0-31.0); Cardiac Risk Estimate 3.5 RATIO (4.0-6.7); Chloride 108 mMol/L (98-107); Cholesterol 176 mg/dL (132-200); Creatinine (Component) 1.2 mg/dL (0.6-1.3); Estimated Creatinine Clearance 53.2 mL/min (>60); Glucose 144 mg/dL (74-106); HDL Cholesterol 51 mg/dL (40-60); LDL Cholesterol,Calculated 99 mg/dL (0-130); Osmolality,Calculated 283 (275-295); Phosphorous 3.1 mg/dL (2.4-5.1); Potassium 4.1 mMol/L (3.4-5.1); Sodium 140 mMol/L (136-145); Total Protein 7.1 gm/dL (5.7-8.2); Triglycerides 129 mg/dL (30-150); eGFR > 60 See Note
[2024-06-27] MEDS: INSULIN LISPRO (AdmeLOG) 1 UNIT/0.01 ML UNIT SC ×3 (08:00→20:26)
[2024-06-27] MEDS: HEPARIN SOD INJ 5000 UNIT/ML VIAL SC ×2 (09:10→20:25)
[2024-06-27] MEDS: Lisinopril 2.5 MG TABLET PO (09:11)
[2024-06-27 09:43] LABS: Sed Rate (ESR) 19 mm/hr (0-20)
[2024-06-27 10:15] LABS: C-Reactive Protein < 0.5 mg/dL (0.0-0.9)
[2024-06-27 12:41] LABS: Cocci Serology, IgG Negative (Negative)
[2024-06-27] MEDS: cefTRIAXone/D5w 1gm IV premix 1 GM/50 ML BAG IV (13:11)
[2024-06-27] MEDS: AZITHROMYCIN INJ 500 MG in SODIUM CHLORIDE 0.9% 250 ML 250 ML 250 MG IV (13:11)
--- NOTE | 2024-06-27 13:15 | ESPR_ITS ---
<Statement entered by Barron Schwartz MD - 06/30/24 13:01> I reviewed above note and agree with findings and plans. I have also personally examined the patient with medicine team and went over assessment and plan with medical team including analysis intern and resident physician. Documentation for date of: 06/27/24 Subjective Subjective Interval history: No overnight events. Patient remains in isolation as TB rule out. Cocci IgM- negative. Exam Vital Signs Temp Pulse Resp BP Pulse Ox O2 Del Method 97.1 F 82 20 140/83 H 98 Room Air 06/27/24 11:56 06/27/24 11:56 06/27/24 11:56 06/27/24 11:56 06/27/24 11:56 06/27/24 11:56 Narrative Exam General Appearance: Alert & Oriented X3, well-nourished male who is lying in bed in no acute distress HEENT: Skull symmetrical and atraumatic. Conjunctivae pin and moist. Pupils equal, round, reactive to light and accommodation (PERRL). External ear without lesion or discharge. Straight, nares patient, mucosa pink, no discharge. No thyroid nodule appreciated. No cervical lymphadenopathy. Cardio: Normal Rate and Rhythm with S1 and S2 heart sounds. No murmurs or extra heart sounds auscultated. No bruits on carotid auscultation. No peripheral edema or cyanosis. Lungs: Symmetric with good expansion. Chest and back non-tender. Breath sounds vesicular without crackles, wheezing or rhonchi Abdomen: Non-tender, Non-distended, Normal Reactive Bowel Sounds Neuro: Alert, cooperative, oriented to person, place, and time. Speech clear. CN grossly intact. Upper motor strength 5/5 and Lower motor strength 5/5. Sensation intact. Objective Labs 06/28/24 05:40 06/28/24 05:40 Labs: Laboratory Results - last 24 hr 06/26/24 06/27/24 06:01 05:30 WBC 8.7 RBC 4.92 Hgb 14.5 Hct 43.0 MCV 87 MCH 29.5 MCHC 33.7 RDW Std Deviation 40.5 Plt Count 300 Neut % (Auto) 67 Lymph % (Auto) 22 [place] % (Auto) 9 Eos % (Auto) 2 Baso % (Auto) 0 Neut # (Auto) 5.8 Lymph # (Auto) 1.9 [place] # (Auto) 0.8 Eos # (Auto) 0.2 Baso # (Auto) 0.0 Immature Gran # (Auto) 0.03 H Absolute Nucleated RBC 0.00 Immature Gran % 0 Nucleated RBC % 0 ESR 19 Sodium 140 Potassium 4.1 Chloride 108 H Carbon Dioxide 25.4 Anion Gap 7 BUN 15 Creatinine 1.2 Estim Creat Clear Calc 53.2 L eGFR > 60 BUN/Creatinine Ratio [address]ucose [address] Glu mg/dL 212 H Hemoglobin A1c 9.0 H Calculated Osmolality 283 Calcium 9.2 Corrected Calcium 9.2 Phosphorus 3.1 Magnesium 2.0 Total Bilirubin 0.8 AST 14 ALT 15 Alkaline Phosphatase 88 C-Reactive Prot, Quant < 0.5 Total Protein 7.1 Albumin 4.1 Globulin 3.0 Albumin/Globulin Ratio 1.4 Triglycerides 129 Cholesterol 176 LDL Cholesterol, Calc 99 HDL Cholesterol 51 Cholesterol/HDL Ratio 3.5 L Coccidioides IgG Ab Negative Coccidioides IgM Ab Negative Quality Measures Quality Measures none Assessment & Plan Assessment Current Active Medications: Generic Name Dose Route Start Last Admin Trade Name Freq PRN Reason Stop Dose Admin Acetaminophen 650 mg 06/26/24 12:06 06/26/24 20:53 Acetaminophen 325 Mg Tablet PO 07/26/24 12:05 650 mg Q6H PRN Administration Mild Pain 1-3 or Fever >100.3 Atorvastatin Calcium 10 mg 06/26/24 21:00 06/26/24 20:53 Atorvastatin Calcium 10 Mg Tablet PO 07/26/24 20:59 10 mg HS CELIO Administration Dextrose 25 ml 06/26/24 12:11 Dextrose 50%-Water Inj 50 Ml Syringe IV 07/26/24 12:10 Q15MIN PRN BG 50-70 responsive npo pt Dextrose 50 ml 06/26/24 12:11 Dextrose 50%-Water Inj 50 Ml Syringe IV 07/26/24 12:10 Q15MIN PRN BG <50 OR BG <70 & pt unresponsive Glucagon 1 mg 06/26/24 12:11 Glucagon Inj 1 Mg Vial IM Q15MIN PRN BG <70, and no IV access Heparin Sodium (Porcine) 5,000 unit 06/26/24 21:00 06/27/24 09:10 Heparin Sod Inj 5000 Unit/Ml Vial SC 07/10/24 20:59 5,000 unit Q12HR CELIO Administration Ceftriaxone Sodium/Dextrose 1 gm in 50 mls @ 100 mls/hr 06/26/24 13:23 06/27/24 13:11 Rocephin/D5w 1gm Iv Premix IV 07/03/24 13:22 100 mls/hr QDAY@1400 CELIO Administration Azithromycin 500 mg/ Sodium 250 mls @ 250 mls/hr 06/27/24 14:00 06/27/24 13:11 Chloride IV 07/04/24 13:59 250 mls/hr QDAY@1400 CELIO Administration Insulin Glargine 20 unit 06/26/24 21:00 06/26/24 20:57 Insulin Glargine (Lantus) 5 Unit/0.05 Ml (Per 5 Units) SC 07/26/24 20:59 20 unit HS CELIO Administration Insulin Human Lispro 0 unit 06/26/24 17:00 06/27/24 11:32 Insulin Lispro (Admelog) 1 Unit/0.01 Ml Unit SC 07/26/24 16:59 Not Given ACHS CELIO Protocol Lactulose 10 gm 06/26/24 17:00 06/27/24 11:27 Lactulose Syrup 20 Gm/30 Ml Udc PO 07/26/24 16:59 10 gm QID CELIO Administration Protocol Lisinopril 2.5 mg 06/26/24 13:30 06/27/24 09:11 Lisinopril 2.5 Mg Tablet PO 07/26/24 13:29 2.5 mg QDAY CELIO Administration Ondansetron HCl 4 mg 06/26/24 12:06 Ondansetron Inj 2 Mg/Ml Inj 2 Ml IV 07/26/24 12:05 Q6H PRN NAUSEA OR VOMITING Protocol Sennosides 1 tab 06/26/24 12:06 Senna Tablet PO 07/26/24 12:05 QDAY PRN constipation Protocol Plan Patient is a 64-year-old male with a past medical history of diabetes mellitus type 2 insulin-dependent?on glargine 40 units at bedtime?, hypertension, and hyperlipidemia who was admitted for TB rule out showing cavitary lesions on both lung apices on CT chest. #TB Rule Out Vs cocci #Leukocytosis, improved Patient denied history of TB or history of Cocci. 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 Patient denied history of cancer. Autoimmune causes can not be ruled out such as sarcidosis, but this is less likely given calcium is within normal limits. Pneumonia less likely but can not be excluded. Chest X-ray: Cavitary-appearing parenchymal disease in the upper lung zones & Mild prominence left ventricle CT Chest: Cavitary parenchymal disease at both lung apices, the largest cavity 17 mm in the left upper lobe. Dilated bronchi in the upper lobes. Plan -Isolation Precautions. -Sputum AFB 3 -Sputum Culture -Flu, Covid, Legionella -Cocci IgM, IGM peniding -TB Test pending -Azimthromycin & Ceftriaxone 06/26/2024- #Diabetes Mellitus Type 2 Insulin Dependent Patient has a past medical history of Diabetes Mellitus Type 2 on insulin. Glargine 40 units HS, Fargixa, and Lispro 14 units. Patient is not sure of his A1c at home. Patient follows with a medical provider in [facility]. Hold Fargixa Diagnostics: Glucose 144 A1c 9.0 (06/27/2024) Plan -Glargine 20 HS -Lispro Sliding Scale -Consider adding schedule Lispro, based on morning labs. -carb consistent low -Montior fasting blood glucose #Hyperlipidemia Patient has a past medical history of HLD, home medication of Rosuvastatin 5 mg HS. Plan -Hold Rosuvastin 5 mg HS -Atorvastatin 10 mg HS #Hypertension Patient stated he uses Fargixa as a his home medication for his hypertension, although Fargixa is used CKD or diabetic patients. Patient was not sure if he took other medication for hypertension. Plan -Lisinopril 2.5 mg Qday-->Lisinopril 5 mg qday -Monitor Blood Pressure #Constipation Plan -Senna PRN -lactulose TID CELIO #Incidental finding of, End-stage atrophic left kidney Health Maintenance: Disp: Pt is currently admitted to floors for further management of TB rule out given cavitary lesion , awaiting cocci IgG & TB FEN: Low Carb Consistent Low DVT: on subQ heparin Code: Full Code - The patient's plan was discussed with attending and Frankie Bernal MD PGY1 Internal Medicine
[2024-06-27] MEDS: INSULIN GLARGINE (Lantus) 5 UNIT/0.05 ML (PER 5 UNITS) 20 UNIT SC (20:26)
[2024-06-27] MEDS: ATORVASTATIN CALCIUM 10 MG TABLET PO (20:55)
[2024-06-28] VITALS (9 sets, daily range): BP systolic 100–134; BP diastolic 68–85; PULSE 68–98; RESP 16–97; TEMP 36.2–36.9; O2SAT 95–97
[2024-06-28] MEDS: LACTULOSE SYRUP 20 GM/30 ML UDC 10 GM PO ×4 (05:25→20:50)
[2024-06-28 06:25] LABS: Basophils % (Auto) 0 % (0-2.5); Eosinophils # (Auto) 0.2 Thou/mm3 (0.0-0.5); Eosinophils % (Auto) 3 % (0-10); Hematocrit 44.6 % (41.0-53.0); Hemoglobin 15.2 g/dL (13.5-16.0); Immature Granulocytes % (Auto) 0 % (0-0); Immature Granulocytes Auto 0.04 Thou/mm3 (0.00-0.00); Lymphocytes # (Auto) 2.3 Thou/mm3 (1.0-4.8); Lymphocytes % (Auto) 24 % (10-50); Mean Corpuscular HGB Conc 34.1 g/dl (31.0-37.0); Mean Corpuscular Hemoglobin 29.1 pg (25.0-35.0); Mean Corpuscular Volume 85 fL (80-100); Monocytes # (Auto) 0.9 Thou/mm3 (0.0-0.8); Monocytes % (Auto) 9 % (0-12); Neutrophils # (Auto) 6.2 Thou/mm3 (1.8-7.7); Neutrophils % (Auto) 64 % (37-80); Nucleated Red Blood Cell % 0 /100 WBC (0); Platelet Count 315 Thou/mm3 (140-440); RDW Standard Deviation 39.6 fL (35.1-43.9); Red Blood Count 5.22 Miln/mm3 (4.50-5.90); White Blood Count 9.7 Thou/mm3 (3.8-10.6)
[2024-06-28 06:40] LABS: Alanine Aminotransferase 16 U/L (10-49); Albumin, Serum 4.3 gm/dL (3.4-4.8); Albumin/Globulin Ratio 1.4 (1.2-2.2); Alkaline Phosphatase 86 U/L (46-116); Anion Gap 7 (7-16); Aspartate Amino Transferase 14 U/L (0-34); BUN/Creatinine Ratio 16 Ratio (12-20); Bilirubin,Total 0.6 mg/dL (0.3-1.2); Blood Urea Nitrogen 21 mg/dL (9-23); Calcium 9.5 mg/dL (8.3-10.6); Calcium (Corrected) 9.5 mg/dL (8.5-10.1); Carbon Dioxide 24.3 mMol/L (20.0-31.0); Chloride 108 mMol/L (98-107); Creatinine (Component) 1.3 mg/dL (0.6-1.3); Estimated Creatinine Clearance 49.1 mL/min (>60); Glucose 157 mg/dL (74-106); Magnesium 1.8 mg/dL (1.6-2.6); Osmolality,Calculated 283 (275-295); Phosphorous 3.9 mg/dL (2.4-5.1); Potassium 4.2 mMol/L (3.4-5.1); Sodium 139 mMol/L (136-145); Total Protein 7.3 gm/dL (5.7-8.2); eGFR > 60 See Note
[2024-06-28] MEDS: INSULIN LISPRO (AdmeLOG) 1 UNIT/0.01 ML UNIT SC ×3 (07:43→21:11)
[2024-06-28 08:13] LABS: Quantiferon-TB* See Sep Rpt
[2024-06-28] MEDS: Magnesium Sulfate 2 GM Ivpb 2 GM/50 ML BAG IV (08:56)
[2024-06-28] MEDS: HEPARIN SOD INJ 5000 UNIT/ML VIAL SC ×2 (08:56→20:53)
[2024-06-28] MEDS: DAPAGLIFLOZIN PROPANEDIOL 5 MG TABLET PO (10:08)
[2024-06-28 11:54] LABS: Cult AFB Sendout- Sputum* See Sep Rpt
[2024-06-28] MEDS: AZITHROMYCIN INJ 500 MG in SODIUM CHLORIDE 0.9% 250 ML 250 ML 250 MG IV (13:10)
[2024-06-28] MEDS: cefTRIAXone/D5w 1gm IV premix 1 GM/50 ML BAG IV (13:10)
--- NOTE | 2024-06-28 16:10 | PC.SS ---
rounding note: Patient is a TB r/o. AFB's pending. Pending public health update.
--- NOTE | 2024-06-28 17:32 | ESPR_ITS ---
<Statement entered by Barron Schwartz MD - 07/04/24 13:49> I reviewed above note and agree with findings and plans. I have also personally examined the patient with medicine team and went over assessment and plan with medical team including internet sales director and resident physician. Documentation for date of: 06/28/24 Senior resident attestation: The patient is 64-year-old male, past medical diabetes mellitus type 2, hypertension hyperlipidemia, presented with chief complaint of constipation, but found to have cavitary lesions bilateral lung apices on CT chest. Of note patient had prior chest imaging in 2021 which also showed cavitary chest lesion. 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 Cocci IgM ordered which was negative. Admitted patient for sputum AFB to rule out tuberculosis, negative pressure isolation precautions in place. #Bilateral cavitary pulmonary lesions?rule out coccidiomycosis, pending AFB smear and culture results from [facility]. Continue isolation precautions, patient continues to be afebrile, WBC count now normal, will follow microbiology results. #Community-acquired pneumonia?was started on IV antibiotics as patient had leukocytosis on arrival, with bilateral pulmonary lesions on chest imaging, pending final results for AFB culture and QuantiFERON. Will discontinue antibiotics as patient continues to be afebrile and normal WBC count. #History of diabetes mellitus #History of hypertension Patient evaluated and examined at the bedside, plan of care discussed with rest of the team including my attending physician, except as noted. Quresh PGY2 Subjective Subjective Interval history: No overnight events. No fevers reproted. Denied productive cough. Denied Shortness of breath. Pending AFB culture and Quantiferon-TB. Cocci Ig M and IgG negative. Exam Vital Signs Temp Pulse Resp BP Pulse Ox O2 Del Method 97.1 F 73 18 120/75 95 Room Air 06/28/24 12:00 06/28/24 12:06/28/24 12:06/28/24 12:00 06/28/24 12:06/28/24 12:00 Narrative Exam General Appearance: Alert & Oriented X3, well-nourished male who is lying in bed in no acute distress HEENT: Skull symmetrical and atraumatic. Conjunctivae pin and moist. Pupils equal, round, reactive to light and accommodation (PERRL). External ear without lesion or discharge. Straight, nares patient, mucosa pink, no discharge. No thyroid nodule appreciated. No cervical lymphadenopathy. Cardio: Normal Rate and Rhythm with S1 and S2 heart sounds. No murmurs or extra heart sounds auscultated. No bruits on carotid auscultation. No peripheral edema or cyanosis. Lungs: Symmetric with good expansion. Chest and back non-tender. Breath sounds vesicular without crackles, wheezing or rhonchi Abdomen: Non-tender, Non-distended, Normal Reactive Bowel Sounds Neuro: Alert, cooperative, oriented to person, place, and time. Speech clear. CN grossly intact. Upper motor strength 5/5 and Lower motor strength 5/5. Sensation intact. Objective Labs 06/29/24 05:21 06/29/24 05:21 Labs: Laboratory Results - last 24 hr 06/26/24 06/28/24 06:01 05:40 WBC 9.7 RBC 5.22 Hgb 15.2 Hct 44.6 MCV 85 MCH 29.1 MCHC 34.1 RDW Std Deviation 39.6 Plt Count 315 Neut % (Auto) 64 Lymph % (Auto) 24 [place] % (Auto) 9 Eos % (Auto) 3 Baso % (Auto) 0 Neut # (Auto) 6.2 Lymph # (Auto) 2.3 [place] # (Auto) 0.9 H Eos # (Auto) 0.2 Baso # (Auto) 0.0 Immature Gran # (Auto) 0.04 H Absolute Nucleated RBC 0.00 Immature Gran % 0 Nucleated RBC % 0 Sodium 139 Potassium 4.2 Chloride 108 H Carbon Dioxide 24.3 Anion Gap 7 BUN 21 Creatinine 1.3 Estim Creat Clear Calc 49.1 L eGFR > 60 BUN/Creatinine Ratio 16 Glucose 157 H Calculated Osmolality 283 Calcium 9.5 Corrected Calcium 9.5 Phosphorus 3.9 Magnesium 1.8 Total Bilirubin 0.6 AST 14 ALT 16 Alkaline Phosphatase 86 Total Protein 7.3 Albumin 4.3 Globulin 3.0 Albumin/Globulin Ratio 1.4 TB Test (QFT) Cancelled Quality Measures Quality Measures none Assessment & Plan Assessment Current Active Medications: Generic Name Dose Route Start Last Admin Trade Name Freq PRN Reason Stop Dose Admin Acetaminophen 650 mg 06/26/24 12:06 06/26/24 20:53 Acetaminophen 325 Mg Tablet PO 07/26/24 12:05 650 mg Q6H PRN Administration Mild Pain 1-3 or Fever >100.3 Atorvastatin Calcium 10 mg 06/26/24 21:00 06/27/24 20:55 Atorvastatin Calcium 10 Mg Tablet PO 07/26/24 20:59 10 mg HS CELIO Administration Dapagliflozin 5 mg 06/28/24 09:00 06/28/24 10:08 Dapagliflozin Propanediol 5 Mg Tablet PO 07/28/24 08:59 5 mg QAM CELIO Administration Dextrose 25 ml 06/26/24 12:11 Dextrose 50%-Water Inj 50 Ml Syringe IV 07/26/24 12:10 Q15MIN PRN BG 50-70 responsive npo pt Dextrose 50 ml 06/26/24 12:11 Dextrose 50%-Water Inj 50 Ml Syringe IV 07/26/24 12:10 Q15MIN PRN BG <50 OR BG <70 & pt unresponsive Glucagon 1 mg 06/26/24 12:11 Glucagon Inj 1 Mg Vial IM Q15MIN PRN BG <70, and no IV access Heparin Sodium (Porcine) 5,000 unit 06/26/24 21:00 06/28/24 08:56 Heparin Sod Inj 5000 Unit/Ml Vial SC 07/10/24 20:59 5,000 unit Q12HR CELIO Administration Ceftriaxone Sodium/Dextrose 1 gm in 50 mls @ 100 mls/hr 06/26/24 13:23 06/28/24 13:10 Rocephin/D5w 1gm Iv Premix IV 07/03/24 13:22 100 mls/hr QDAY@1400 CELIO Administration Azithromycin 500 mg/ Sodium 250 mls @ 250 mls/hr 06/27/24 14:00 06/28/24 13:10 Chloride IV 07/04/24 13:59 250 mls/hr QDAY@1400 CELIO Administration Insulin Glargine 20 unit 06/26/24 21:00 06/27/24 20:26 Insulin Glargine (Lantus) 5 Unit/0.05 Ml (Per 5 Units) SC 07/26/24 20:59 20 unit HS CELIO Administration Insulin Human Lispro 0 unit 06/26/24 17:00 06/28/24 16:57 Insulin Lispro (Admelog) 1 Unit/0.01 Ml Unit SC 07/26/24 16:59 Not Given ACHS [facility] Protocol Lactulose 10 gm 06/26/24 17:00 06/28/24 11:19 Lactulose Syrup 20 Gm/30 Ml Udc PO 07/26/24 16:59 10 gm QID CELIO Administration Protocol Lisinopril 5 mg 06/28/24 09:00 06/28/24 08:53 Lisinopril 2.5 Mg Tablet PO 07/28/24 08:59 Not Given QDAY CELIO Ondansetron HCl 4 mg 06/26/24 12:06 Ondansetron Inj 2 Mg/Ml Inj 2 Ml IV 07/26/24 12:05 Q6H PRN NAUSEA OR VOMITING Protocol Sennosides 1 tab 06/26/24 12:06 Senna Tablet PO 07/26/24 12:05 QDAY PRN constipation Protocol Plan Patient is a 64-year-old male with a past medical history of diabetes mellitus type 2 insulin-dependent?on glargine 40 units at bedtime?, hypertension, and hyperlipidemia who was admitted for TB rule out showing cavitary lesions on both lung apices on CT chest. #TB Rule Out #Leukocytosis, improved Patient denied history of TB or history of Cocci. 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 Patient denied history of cancer. Autoimmune causes can not be ruled out such as sarcoidosis, but this is less likely given calcium is within normal limits. Pneumonia less likely but can not be excluded. Chest X-ray: Cavitary-appearing parenchymal disease in the upper lung zones & Mild prominence left ventricle CT Chest: Cavitary parenchymal disease at both lung apices, the largest cavity 17 mm in the left upper lobe. Dilated bronchi in the upper lobes. RSV, Flu, COVID Negative Plan -Isolation Precautions. -Sputum AFB 3 -Quantiferon TB -Azimthromycin & Ceftriaxone 06/26/2024- #Diabetes Mellitus Type 2 Insulin Dependent Patient has a past medical history of Diabetes Mellitus Type 2 on insulin. Glargine 40 units HS, Fargixa, and Lispro 14 units. Patient is not sure of his A1c at home. Patient follows with a medical provider in [facility]. Hold Fargixa Diagnostics: Glucose 144 A1c 9.0 (06/27/2024) Plan -Glargine 20 HS -Lispro Sliding Scale -Fargixa 5 mg PO -carb consistent low #Hyperlipidemia Patient has a past medical history of HLD, home medication of Rosuvastatin 5 mg HS. Plan -Hold Rosuvastin 5 mg HS -Atorvastatin 10 mg HS #Hypertension Patient stated he uses Fargixa as a his home medication for his hypertension, although Fargixa is used CKD or diabetic patients. Patient was not sure if he took other medication for hypertension. Plan -Lisinopril 5 mg qday -Monitor Blood Pressure #Constipation Plan -Senna PRN -lactulose TID CELIO #Incidental finding of, End-stage atrophic left kidney Health Maintenance: Disp: Pt is currently admitted to floors for further management of TB rule out given cavitary lesion ,AFB culture FEN: Low Carb Consistent Low DVT: on subQ heparin Code: Full Code - The patient's plan was discussed with attending and Frankie Bernal MD PGY1 Internal Medicine
[2024-06-28] MEDS: ATORVASTATIN CALCIUM 10 MG TABLET PO (20:51)
[2024-06-28] MEDS: INSULIN GLARGINE (Lantus) 5 UNIT/0.05 ML (PER 5 UNITS) 20 UNIT SC (21:11)
[2024-06-29] VITALS (9 sets, daily range): BP systolic 120–140; BP diastolic 80–87; PULSE 69–94; RESP 16–98; TEMP 36.1–36.5; O2SAT 94–97
[2024-06-29] MEDS: LACTULOSE SYRUP 20 GM/30 ML UDC 10 GM PO ×4 (05:38→21:52)
[2024-06-29 06:05] LABS: Basophils % (Auto) 0 % (0-2.5); Eosinophils # (Auto) 0.3 Thou/mm3 (0.0-0.5); Eosinophils % (Auto) 3 % (0-10); Hematocrit 47.5 % (41.0-53.0); Hemoglobin 15.9 g/dL (13.5-16.0); Immature Granulocytes % (Auto) 0 % (0-0); Immature Granulocytes Auto 0.03 Thou/mm3 (0.00-0.00); Lymphocytes # (Auto) 2.1 Thou/mm3 (1.0-4.8); Lymphocytes % (Auto) 23 % (10-50); Mean Corpuscular HGB Conc 33.5 g/dl (31.0-37.0); Mean Corpuscular Hemoglobin 29.3 pg (25.0-35.0); Mean Corpuscular Volume 88 fL (80-100); Monocytes # (Auto) 0.9 Thou/mm3 (0.0-0.8); Monocytes % (Auto) 10 % (0-12); Neutrophils # (Auto) 5.6 Thou/mm3 (1.8-7.7); Neutrophils % (Auto) 63 % (37-80); Nucleated Red Blood Cell % 0 /100 WBC (0); Platelet Count 324 Thou/mm3 (140-440); RDW Standard Deviation 40.9 fL (35.1-43.9); Red Blood Count 5.42 Miln/mm3 (4.50-5.90); White Blood Count 8.9 Thou/mm3 (3.8-10.6)
[2024-06-29 06:32] LABS: Alanine Aminotransferase 24 U/L (10-49); Albumin, Serum 4.4 gm/dL (3.4-4.8); Albumin/Globulin Ratio 1.3 (1.2-2.2); Alkaline Phosphatase 86 U/L (46-116); Anion Gap 11 (7-16); Aspartate Amino Transferase 19 U/L (0-34); BUN/Creatinine Ratio 17 Ratio (12-20); Bilirubin,Total 0.6 mg/dL (0.3-1.2); Blood Urea Nitrogen 22 mg/dL (9-23); Calcium 9.3 mg/dL (8.3-10.6); Calcium (Corrected) 9.3 mg/dL (8.5-10.1); Carbon Dioxide 23.7 mMol/L (20.0-31.0); Chloride 108 mMol/L (98-107); Creatinine (Component) 1.3 mg/dL (0.6-1.3); Estimated Creatinine Clearance 49.1 mL/min (>60); Globulin 3.5 gm/dL (2.3-3.5); Glucose 132 mg/dL (74-106); Magnesium 2.1 mg/dL (1.6-2.6); Osmolality,Calculated 290 (275-295); Phosphorous 4.2 mg/dL (2.4-5.1); Potassium 4.2 mMol/L (3.4-5.1); Sodium 143 mMol/L (136-145); Total Protein 7.9 gm/dL (5.7-8.2); eGFR > 60 See Note
[2024-06-29] MEDS: HEPARIN SOD INJ 5000 UNIT/ML VIAL SC ×2 (08:34→21:53)
[2024-06-29] MEDS: DAPAGLIFLOZIN PROPANEDIOL 5 MG TABLET PO (08:34)
[2024-06-29] MEDS: Lisinopril 2.5 MG TABLET 5 MG PO (08:34)
[2024-06-29] MEDS: INSULIN LISPRO (AdmeLOG) 1 UNIT/0.01 ML UNIT SC ×3 (11:40→21:53)
--- NOTE | 2024-06-29 12:51 | ESPR_ITS ---
<Statement entered by Barron Schwartz MD - 07/10/24 13:16> I reviewed above note and agree with findings and plans. I have also personally examined the patient with medicine team and went over assessment and plan with medical team including internet marketing manager and resident physician. Documentation for date of: 06/29/24 Senior resident attestation: The patient is 64-year-old male, past medical diabetes mellitus type 2, hypertension hyperlipidemia, presented with chief complaint of constipation, but found to have cavitary lesions bilateral lung apices on CT chest. Of note patient had prior chest imaging in 2021 which also showed cavitary chest lesion. 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 Cocci IgM ordered which was negative. Admitted patient for sputum AFB to rule out tuberculosis, negative pressure isolation precautions in place. #Bilateral cavitary pulmonary lesions?rule out coccidiomycosis, pending AFB smear and culture results from [facility]. Continue isolation precautions, patient continues to be afebrile, WBC count now normal, will follow microbiology results. #Community-acquired pneumonia?was started on IV antibiotics as patient had leukocytosis on arrival, with bilateral pulmonary lesions on chest imaging, pending final results for AFB culture and QuantiFERON. Will discontinue antibiotics as patient continues to be afebrile and normal WBC count. #History of diabetes mellitus #History of hypertension Patient evaluated and examined at the bedside, plan of care discussed with rest of the team including my attending physician, except as noted. Quresh PGY2 Subjective Subjective Interval history: No overnight events reported for patient. Patient continues to be hemodynamically stable and saturating well on room air. Denied pyrexia or chills overnight. No SOB reported. No bowel movements overnight, milk of magnesium added. 3AFB cultures collected by respiratory therapy and sent out to on license of [facility] to rule out TB. Exam Vital Signs Temp Pulse Resp BP Pulse Ox O2 Del Method 97.7 F 77 18 136/87 H 94 L Room Air 06/29/24 12:00 06/29/24 12:00 06/29/24 12:00 06/29/24 12:00 06/29/24 12:06/29/24 12:00 Narrative Exam General Appearance: Alert & Oriented X3, thin male who is lying in bed in no acute distress. HEENT: Skull symmetrical and atraumatic. Conjunctivae pin and moist. Pupils equal, round, reactive to light and accommodation (PERRL). External ear without lesion or discharge. Straight, nares patient, mucosa pink, no discharge. No thyroid nodule appreciated. No cervical lymphadenopathy. Cardio: Normal Rate and Rhythm with S1 and S2 heart sounds. No murmurs or extra heart sounds auscultated. No bruits on carotid auscultation. No peripheral edema or cyanosis. Lungs: Symmetric with good expansion. Chest and back non-tender. Breath sounds vesicular without crackles, wheezing or rhonchi Abdomen: Non-tender, Non-distended, Normal Reactive Bowel Sounds Neuro: Alert, cooperative, oriented to person, place, and time. Speech clear. CN grossly intact. Upper motor strength 5/5 and Lower motor strength 5/5. Sensation intact. Objective Labs 06/29/24 05:21 06/29/24 05:21 Labs: Laboratory Results - last 24 hr 06/29/24 05:21 WBC 8.9 RBC 5.42 Hgb 15.9 Hct 47.5 MCV 88 MCH 29.3 MCHC 33.5 RDW Std Deviation 40.9 Plt Count 324 Neut % (Auto) 63 Lymph % (Auto) 23 [place] % (Auto) 10 Eos % (Auto) 3 Baso % (Auto) 0 Neut # (Auto) 5.6 Lymph # (Auto) 2.1 [place] # (Auto) 0.9 H Eos # (Auto) 0.3 Baso # (Auto) 0.0 Immature Gran # (Auto) 0.03 H Absolute Nucleated RBC 0.00 Immature Gran % 0 Nucleated RBC % 0 Sodium 143 Potassium 4.2 Chloride 108 H Carbon Dioxide 23.7 Anion Gap 11 BUN 22 Creatinine 1.3 Estim Creat Clear Calc 49.1 L eGFR > 60 BUN/Creatinine Ratio 17 Glucose 132 H Calculated Osmolality 290 Calcium 9.3 Corrected Calcium 9.3 Phosphorus 4.2 Magnesium 2.1 Total Bilirubin 0.6 AST 19 ALT 24 Alkaline Phosphatase 86 Total Protein 7.9 Albumin 4.4 Globulin 3.5 Albumin/Globulin Ratio 1.3 Quality Measures Quality Measures none Assessment & Plan Assessment Current Active Medications: Generic Name Dose Route Start Last Admin Trade Name Freq PRN Reason Stop Dose Admin Acetaminophen 650 mg 06/26/24 12:06 06/26/24 20:53 Acetaminophen 325 Mg Tablet PO 07/26/24 12:05 650 mg Q6H PRN Administration Mild Pain 1-3 or Fever >100.3 Atorvastatin Calcium 10 mg 06/26/24 21:00 06/28/24 20:51 Atorvastatin Calcium 10 Mg Tablet PO 07/26/24 20:59 10 mg HS CELIO Administration Dapagliflozin 5 mg 06/28/24 09:00 06/29/24 08:34 Dapagliflozin Propanediol 5 Mg Tablet PO 07/28/24 08:59 5 mg QAM CELIO Administration Dextrose 25 ml 06/26/24 12:11 Dextrose 50%-Water Inj 50 Ml Syringe IV 07/26/24 12:10 Q15MIN PRN BG 50-70 responsive npo pt Dextrose 50 ml 06/26/24 12:11 Dextrose 50%-Water Inj 50 Ml Syringe IV 07/26/24 12:10 Q15MIN PRN BG <50 OR BG <70 & pt unresponsive Glucagon 1 mg 06/26/24 12:11 Glucagon Inj 1 Mg Vial IM Q15MIN PRN BG <70, and no IV access Heparin Sodium (Porcine) 5,000 unit 06/26/24 21:00 06/29/24 08:34 Heparin Sod Inj 5000 Unit/Ml Vial SC 07/10/24 20:59 5,000 unit Q12HR CELIO Administration Insulin Glargine 20 unit 06/26/24 21:00 06/28/24 21:11 Insulin Glargine (Lantus) 5 Unit/0.05 Ml (Per 5 Units) SC 07/26/24 20:59 20 unit HS CELIO Administration Insulin Human Lispro 0 unit 06/26/24 17:00 06/29/24 11:40 Insulin Lispro (Admelog) 1 Unit/0.01 Ml Unit SC 07/26/24 16:59 1 unit ACHS CELIO Administration Protocol Lactulose 10 gm 06/26/24 17:00 06/29/24 11:40 Lactulose Syrup 20 Gm/30 Ml Udc PO 07/26/24 16:59 10 gm QID CELIO Administration Protocol Lisinopril 5 mg 06/28/24 09:00 06/29/24 08:34 Lisinopril 2.5 Mg Tablet PO 07/28/24 08:59 5 mg QDAY CELIO Administration Ondansetron HCl 4 mg 06/26/24 12:06 Ondansetron Inj 2 Mg/Ml Inj 2 Ml IV 07/26/24 12:05 Q6H PRN NAUSEA OR VOMITING Protocol Sennosides 1 tab 06/26/24 12:06 Senna Tablet PO 07/26/24 12:05 QDAY PRN constipation Protocol Plan Patient is a 64-year-old male with a past medical history of diabetes mellitus type 2 insulin-dependent?on glargine 40 units at bedtime?, hypertension, and hyperlipidemia who was admitted for cavitary lesion. #Bilateral Cavitary Lesions #Leukocytosis, resolved. Cavitary lesions noted on chest and CT chest imaging. Patient remains in isolation while ruling out TB, pending Culture AFB 3 and quantiferon TB. Less likely secondary to TB as their is no hempotyisis, pyrexia, or weight loss. Although cocci negative for Ig G and Ig M, cavitary lesions likely secondary to cocci as this is an endemic region and cavitary lesions maybe chronic despite IgM and IgG negative. Less likely secondary to pneumonia as the crackles or rhonchi on physical exam Plan -Isolation Precautions -Culture AFB 3, sent out -Quantifern TB, pending #Diabetes Mellitus Type 2 Insulin Dependent Past medical history of type 2 diabetes mellitus on glargine 40 units HS, Fargixa, and lispro 14 units at home. A1c 9.0 05/28/2024- 3 units of lispro Plan -Glargine 22 units -Fargixa 5 mg PO qday -Lispro sliding scale #Hyerllipidemia Patient has past medical history of HLD, home medication of Rosuvastatin 5 mg HS Plan - #Hypertension Patient stated he uses Fargixa as a his home medication for his hypertension, although Fargixa is used CKD or diabetic patients. Patient was not sure if he took other medication for hypertension. Plan -Lisinopril 5 mg qday -Monitor Blood Pressure #Constipation Plan -Milk of Magnesium -lactulose TID CELIO #Incidental finding of, End-stage atrophic left kidney Health Maintenance: Disp: Pt is currently admitted to floors for further management of TB rule out given cavitary lesion ,AFB culture FEN: Low Carb Consistent Low DVT: on subQ heparin Code: Full Code - The patient's plan was discussed with attending Dr. Schwartz and senior residents Frankie Bernal MD PGY1 Internal Medicine
[2024-06-29 13:50] LABS: Cult AFB Sendout- Sputum* See Sep Rpt
--- NOTE | 2024-06-29 15:32 | PC.SS ---
Patient is alert/oriented. Patient was able to verify demographics. Patient admitted for TB R/o. Patient states he lives near the [facility] in a travel trailer in [place]. Patient will be returning to his trailer upon discharge. Patient has no vehicle. Friends assist in transportation for appointments and groceries. Patient is pending Social Security income. Hx: Diabetes. PCP: [facility] in [place]. Pharmacy: [facility] Alt medical decision maker: Em Flores, mother,
[2024-06-29] MEDS: ATORVASTATIN CALCIUM 10 MG TABLET PO (21:52)
[2024-06-29] MEDS: INSULIN GLARGINE (Lantus) 5 UNIT/0.05 ML (PER 5 UNITS) 22 UNIT SC (21:53)
[2024-06-30] VITALS (7 sets, daily range): BP systolic 103–120; BP diastolic 61–74; PULSE 71–82; RESP 17–19; TEMP 36.1–37.1; O2SAT 95
[2024-06-30 05:41] LABS: Basophils % (Auto) 0 % (0-2.5); Eosinophils # (Auto) 0.2 Thou/mm3 (0.0-0.5); Eosinophils % (Auto) 3 % (0-10); Hematocrit 46.1 % (41.0-53.0); Hemoglobin 15.9 g/dL (13.5-16.0); Immature Granulocytes % (Auto) 0 % (0-0); Immature Granulocytes Auto 0.03 Thou/mm3 (0.00-0.00); Lymphocytes # (Auto) 2.6 Thou/mm3 (1.0-4.8); Lymphocytes % (Auto) 27 % (10-50); Mean Corpuscular HGB Conc 34.5 g/dl (31.0-37.0); Mean Corpuscular Hemoglobin 29.4 pg (25.0-35.0); Mean Corpuscular Volume 85 fL (80-100); Monocytes # (Auto) 0.9 Thou/mm3 (0.0-0.8); Monocytes % (Auto) 9 % (0-12); Neutrophils % (Auto) 61 % (37-80); Nucleated Red Blood Cell % 0 /100 WBC (0); Platelet Count 313 Thou/mm3 (140-440); Red Blood Count 5.41 Miln/mm3 (4.50-5.90); White Blood Count 9.8 Thou/mm3 (3.8-10.6)
[2024-06-30 06:17] LABS: Alanine Aminotransferase 27 U/L (10-49); Albumin, Serum 4.4 gm/dL (3.4-4.8); Albumin/Globulin Ratio 1.4 (1.2-2.2); Alkaline Phosphatase 87 U/L (46-116); Anion Gap 11 (7-16); Aspartate Amino Transferase 18 U/L (0-34); BUN/Creatinine Ratio 19 Ratio (12-20); Bilirubin,Total 0.6 mg/dL (0.3-1.2); Blood Urea Nitrogen 30 mg/dL (9-23); Calcium 9.2 mg/dL (8.3-10.6); Calcium (Corrected) 9.2 mg/dL (8.5-10.1); Carbon Dioxide 20.4 mMol/L (20.0-31.0); Chloride 110 mMol/L (98-107); Creatinine (Component) 1.6 mg/dL (0.6-1.3); Estimated Creatinine Clearance 39.9 mL/min (>60); Globulin 3.1 gm/dL (2.3-3.5); Glucose 138 mg/dL (74-106); Magnesium 2.5 mg/dL (1.6-2.6); Osmolality,Calculated 289 (275-295); Phosphorous 4.7 mg/dL (2.4-5.1); Potassium 4.1 mMol/L (3.4-5.1); Sodium 141 mMol/L (136-145); Total Protein 7.5 gm/dL (5.7-8.2); eGFR 48 See Note
[2024-06-30] MEDS: LACTULOSE SYRUP 20 GM/30 ML UDC 10 GM PO (06:30)
[2024-06-30] MEDS: Lisinopril 2.5 MG TABLET 5 MG PO (08:15)
[2024-06-30] MEDS: SODIUM CHLORIDE 0.9% 1000 ML 1,000 ML 80 ML IV (08:15)
[2024-06-30] MEDS: INSULIN LISPRO (AdmeLOG) 1 UNIT/0.01 ML UNIT SC ×2 (08:16→11:37)
[2024-06-30] MEDS: HEPARIN SOD INJ 5000 UNIT/ML VIAL SC ×2 (08:16→21:56)
[2024-06-30] MEDS: DAPAGLIFLOZIN PROPANEDIOL 5 MG TABLET PO (09:09)
--- NOTE | 2024-06-30 09:22 | PC.SS ---
rounding note: Patient pending 2 more AFB's. One came back negative.
--- NOTE | 2024-06-30 11:05 | PC.IP ---
Negative AFB sputum collect on 06/27/2024. Pending 2 more AFBs. If all 3 are negative, pt. meets criteria to be discharge per Mariia DE [facility]
[2024-06-30 12:50] LABS: Cocci Serology, IgM Negative (Negative)
--- NOTE | 2024-06-30 14:20 | ESPR_ITS ---
<Statement entered by Barron Schwartz MD - 07/10/24 13:18> I reviewed above note and agree with findings and plans. I have also personally examined the patient with medicine team and went over assessment and plan with medical team including advertising intern and resident physician. Documentation for date of: 06/30/24 Senior resident attestation: The patient is 64-year-old male, past medical diabetes mellitus type 2, hypertension hyperlipidemia, presented with chief complaint of constipation, but found to have cavitary lesions bilateral lung apices on CT chest. Of note patient had prior chest imaging in 2021 which also showed cavitary chest lesion. 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 Cocci IgM ordered which was negative. Admitted patient for sputum AFB to rule out tuberculosis, negative pressure isolation precautions in place. #Bilateral cavitary pulmonary lesions?ruled out coccidiomycosis, negative serology, negative AFB smear x1, pending rest of AFB smears and culture results from [facility]. Continue isolation precautions, patient continues to be afebrile, WBC count now normal, will follow microbiology results. #Community-acquired pneumonia?was started on IV antibiotics as patient had leukocytosis on arrival, with bilateral pulmonary lesions on chest imaging, pending final results for AFB culture and QuantiFERON. Will discontinue antibiotics as patient continues to be afebrile and normal WBC count. Patient evaluated and examined at the bedside, plan of care discussed with rest of the team including my attending physician, except as noted. Quresh PGY2 Subjective Subjective Interval history: No overnight events reported. Patient remains in isolation, pending AFB from [facility] to return. Patient continues to deny chest pain or shortness of breath. Patient continues to remain stable stable. 3 bowel movements reported. Exam Vital Signs Temp Pulse Resp BP Pulse Ox O2 Del Method 97 F 74 17 113/69 95 Room Air 06/30/24 12:00 06/30/24 12:00 06/30/24 12:06/30/24 12:00 06/30/24 12:06/30/24 12:00 Narrative Exam General Appearance: Alert & Oriented X3, thin male who is lying in bed in no acute distress. HEENT: Skull symmetrical and atraumatic. Conjunctivae pin and moist. Pupils equal, round, reactive to light and accommodation (PERRL). External ear without lesion or discharge. Straight, nares patient, mucosa pink, no discharge. No thyroid nodule appreciated. No cervical lymphadenopathy. Cardio: Normal Rate and Rhythm with S1 and S2 heart sounds. No murmurs or extra heart sounds auscultated. No bruits on carotid auscultation. No peripheral edema or cyanosis. Lungs: Symmetric with good expansion. Chest and back non-tender. Breath sounds vesicular without crackles, wheezing or rhonchi Abdomen: Non-tender, Non-distended, Normal Reactive Bowel Sounds Neuro: Alert, cooperative, oriented to person, place, and time. Speech clear. CN grossly intact. Upper motor strength 5/5 and Lower motor strength 5/5. Sensation intact. Objective Labs 06/30/24 05:07 06/30/24 05:07 Labs: Laboratory Results - last 24 hr 06/27/24 06/30/24 06/30/24 04:50 05:07 10:06 WBC 9.8 RBC 5.41 Hgb 15.9 Hct 46.1 MCV 85 MCH 29.4 MCHC 34.5 RDW Std Deviation 40.0 Plt Count 313 Neut % (Auto) 61 Lymph % (Auto) 27 [place] % (Auto) 9 Eos % (Auto) 3 Baso % (Auto) 0 Neut # (Auto) 6.0 Lymph # (Auto) 2.6 [place] # (Auto) 0.9 H Eos # (Auto) 0.2 Baso # (Auto) 0.0 Immature Gran # (Auto) 0.03 H Absolute Nucleated RBC 0.00 Immature Gran % 0 Nucleated RBC % 0 Sodium 141 Potassium 4.1 Chloride 110 H Carbon Dioxide 20.4 Anion Gap 11 BUN 30 H Creatinine 1.6 H Estim Creat Clear Calc 39.9 L eGFR 48 L BUN/Creatinine Ratio 19 Glucose 138 H Calculated Osmolality 289 Calcium 9.2 Corrected Calcium 9.2 Phosphorus 4.7 Magnesium 2.5 Total Bilirubin 0.6 AST 18 ALT 27 Alkaline Phosphatase 87 Total Protein 7.5 Albumin 4.4 Globulin 3.1 Albumin/Globulin Ratio 1.4 Coccidioides IgM Ab Negative Mycobacterial Culture See Sep Rpt Quality Measures Quality Measures none Assessment & Plan Assessment Current Active Medications: Generic Name Dose Route Start Last Admin Trade Name Freq PRN Reason Stop Dose Admin Acetaminophen 650 mg 06/26/24 12:06 06/26/24 20:53 Acetaminophen 325 Mg Tablet PO 07/26/24 12:05 650 mg Q6H PRN Administration Mild Pain 1-3 or Fever >100.3 Atorvastatin Calcium 10 mg 06/26/24 21:00 06/29/24 21:52 Atorvastatin Calcium 10 Mg Tablet PO 07/26/24 20:59 10 mg HS CELIO Administration Dapagliflozin 5 mg 06/28/24 09:00 06/30/24 09:09 Dapagliflozin Propanediol 5 Mg Tablet PO 07/28/24 08:59 5 mg QAM CELIO Administration Dextrose 25 ml 06/26/24 12:11 Dextrose 50%-Water Inj 50 Ml Syringe IV 07/26/24 12:10 Q15MIN PRN BG 50-70 responsive npo pt Dextrose 50 ml 06/26/24 12:11 Dextrose 50%-Water Inj 50 Ml Syringe IV 07/26/24 12:10 Q15MIN PRN BG <50 OR BG <70 & pt unresponsive Glucagon 1 mg 06/26/24 12:11 Glucagon Inj 1 Mg Vial IM Q15MIN PRN BG <70, and no IV access Heparin Sodium (Porcine) 5,000 unit 06/26/24 21:00 06/30/24 08:16 Heparin Sod Inj 5000 Unit/Ml Vial SC 07/10/24 20:59 5,000 unit Q12HR CELIO Administration Hydralazine HCl 10 mg 06/30/24 09:23 Hydralazine Inj 20 Mg/Ml Vial IV 07/30/24 09:29 Q6H PRN hypertension Sodium Chloride 1,000 mls @ 80 mls/hr 06/30/24 07:59 06/30/24 08:15 Ns IV 06/30/24 20:28 80 mls/hr .[id number] ONE Administration Insulin Glargine 22 unit 06/29/24 21:00 06/29/24 21:53 Insulin Glargine (Lantus) 5 Unit/0.05 Ml (Per 5 Units) SC 07/29/24 20:59 22 unit HS CELIO Administration Insulin Human Lispro 0 unit 06/26/24 17:00 06/30/24 11:37 Insulin Lispro (Admelog) 1 Unit/0.01 Ml Unit SC 07/26/24 16:59 1 unit ACHS CELIO Administration Protocol Lactulose 10 gm 06/26/24 17:00 06/30/24 11:40 Lactulose Syrup 20 Gm/30 Ml Udc PO 07/26/24 16:59 Not Given QID CELIO Protocol Lisinopril 5 mg 06/28/24 09:00 06/30/24 08:15 Lisinopril 2.5 Mg Tablet PO 07/28/24 08:59 5 mg QDAY CELIO Administration Magnesium Hydroxide 30 ml 06/29/24 15:55 Milk Of Magnesia Susp 30 Ml Udc PO 07/29/24 15:54 QDAY PRN CONSTIPATION Protocol Ondansetron HCl 4 mg 06/26/24 12:06 Ondansetron Inj 2 Mg/Ml Inj 2 Ml IV 07/26/24 12:05 Q6H PRN NAUSEA OR VOMITING Protocol Sennosides 1 tab 06/26/24 12:06 Senna Tablet PO 07/26/24 12:05 QDAY PRN constipation Protocol Plan Patient is a 64-year-old male with a past medical history of diabetes mellitus type 2 insulin-dependent?on glargine 40 units at bedtime?, hypertension, and hyperlipidemia who was admitted for cavitary lesion. #Bilateral Cavitary Lesions #Leukocytosis, resolved. Cavitary lesions noted on chest and CT chest imaging. Patient remains in isolation while ruling out TB, pending Culture AFB 3 and quantiferon TB. Less likely secondary to TB as their is no hempotyisis, pyrexia, or weight loss. Although cocci negative for Ig G and Ig M, cavitary lesions likely secondary to cocci as this is an endemic region and cavitary lesions maybe chronic despite IgM and IgG negative. Less likely secondary to pneumonia as NO crackles or rhonchi on physical exam Plan -Isolation Precautions -Culture AFB 3, sent out -Quantifern TB, pending -Aspergillosis -Repeat Cocci #Diabetes Mellitus Type 2 Insulin Dependent Past medical history of type 2 diabetes mellitus on glargine 40 units HS, Fargixa, and lispro 14 units at home. A1c 9.0 Plan -Glargine 22 units -Fargixa 5 mg PO qday -Lispro sliding scale #Hyerllipidemia Home medication of rosuvastatin 5 mg, home dose. D/C upon discharge as patient ASCVD score of 13.0%. ASCVD 13.0%, High intensity statins recommended Plan -Atorvastatin 40 mg qday #Hypertension Patient stated he uses Fargixa as a his home medication for his hypertension, although Fargixa is used CKD or diabetic patients. Patient was not sure if he took other medication for hypertension. Plan -Lisinopril 2.5 mg qday -Monitor Blood Pressure #Constipation, resolved. Plan -Milk of Magnesium -lactulose TID CELIO-->Qday #Incidental finding of, End-stage atrophic left kidney Health Maintenance: Disp: Pt is currently admitted to floors for further management of TB rule out given cavitary lesion ,AFB culture FEN: Low Carb Consistent Low DVT: on subQ heparin Code: Full Code - The patient's plan was discussed with attending Dr. Schwartz and senior residents Frankie Bernal MD PGY1 Internal Medicine
[2024-06-30] MEDS: ATORVASTATIN CALCIUM 10 MG TABLET 40 MG PO (21:55)
[2024-07-01] VITALS: BP 110/68; PULSE 76; RESP 18; TEMP 36.9; O2SAT 98
[2024-07-01 04:00] VITALS: BP 99/55; PULSE 70; RESP 17; TEMP 36.5; O2SAT 97
[2024-07-01 05:25] LABS: Basophils % (Auto) 0 % (0-2.5); Eosinophils # (Auto) 0.2 Thou/mm3 (0.0-0.5); Eosinophils % (Auto) 2 % (0-10); Hematocrit 42.7 % (41.0-53.0); Hemoglobin 14.8 g/dL (13.5-16.0); Immature Granulocytes % (Auto) 0 % (0-0); Immature Granulocytes Auto 0.03 Thou/mm3 (0.00-0.00); Lymphocytes # (Auto) 2.6 Thou/mm3 (1.0-4.8); Lymphocytes % (Auto) 27 % (10-50); Mean Corpuscular HGB Conc 34.7 g/dl (31.0-37.0); Mean Corpuscular Hemoglobin 29.5 pg (25.0-35.0); Mean Corpuscular Volume 85 fL (80-100); Monocytes # (Auto) 0.8 Thou/mm3 (0.0-0.8); Monocytes % (Auto) 8 % (0-12); Neutrophils % (Auto) 62 % (37-80); Nucleated Red Blood Cell % 0 /100 WBC (0); Platelet Count 300 Thou/mm3 (140-440); Red Blood Count 5.02 Miln/mm3 (4.50-5.90); White Blood Count 9.7 Thou/mm3 (3.8-10.6)
[2024-07-01 05:51] LABS: Alanine Aminotransferase 23 U/L (10-49); Albumin, Serum 4.2 gm/dL (3.4-4.8); Albumin/Globulin Ratio 1.4 (1.2-2.2); Alkaline Phosphatase 80 U/L (46-116); Anion Gap 8 (7-16); Aspartate Amino Transferase 15 U/L (0-34); BUN/Creatinine Ratio 22 Ratio (12-20); Bilirubin,Total 0.7 mg/dL (0.3-1.2); Blood Urea Nitrogen 28 mg/dL (9-23); Calcium 8.9 mg/dL (8.3-10.6); Calcium (Corrected) 8.9 mg/dL (8.5-10.1); Carbon Dioxide 19.7 mMol/L (20.0-31.0); Chloride 113 mMol/L (98-107); Creatinine (Component) 1.3 mg/dL (0.6-1.3); Estimated Creatinine Clearance 49.1 mL/min (>60); Globulin 2.9 gm/dL (2.3-3.5); Glucose 120 mg/dL (74-106); Magnesium 2.2 mg/dL (1.6-2.6); Osmolality,Calculated 287 (275-295); Phosphorous 3.6 mg/dL (2.4-5.1); Potassium 4.1 mMol/L (3.4-5.1); Sodium 141 mMol/L (136-145); Total Protein 7.1 gm/dL (5.7-8.2); eGFR > 60 See Note
[2024-07-01 07:43] VITALS: BP 113/56; PULSE 60; RESP 18; TEMP 36.4; O2SAT 96
[2024-07-01] MEDS: LACTULOSE SYRUP 20 GM/30 ML UDC 10 GM PO (08:20)
[2024-07-01] MEDS: DAPAGLIFLOZIN PROPANEDIOL 5 MG TABLET PO (08:21)
[2024-07-01] MEDS: HEPARIN SOD INJ 5000 UNIT/ML VIAL SC ×2 (08:21→20:53)
[2024-07-01] MEDS: SODIUM CHLORIDE 0.9% 500 ML 500 ML 80 ML IV (09:46)
[2024-07-01 11:10] LABS: Cocci Serology, IgG Negative (Negative)
[2024-07-01 12:00] VITALS: BP 114/82; PULSE 70; RESP 18; TEMP 36.3; O2SAT 96
--- NOTE | 2024-07-01 12:13 | PD.RESPRO ---
Documentation for date of: 07/01/24 Subjective Subjective Interval history: Patient was seen and examined at bedside. No acute overnight events. Repeat IgM cocci is negative, today upon my evaluation patient was hemodynamically stable, CBC unremarkable, CMP revealed improvement of renal function, creatinine is down to 1.3 from 1.6, patient will be given 500 of NS strong maintenance 75 cc/h. Blood sugar is well-controlled with Lantus 20. Blood pressure is under control. Will continue current management, pending final AFB and QuantiFERON results. Patient denies any shortness of breath, cough, chest pain or any other associated symptoms. Exam Vital Signs Temp Pulse Resp BP Pulse Ox O2 Del Method 97.4 F 70 18 114/82 96 Room Air 07/01/24 12:00 07/01/24 12:00 07/01/24 12:00 07/01/24 12:00 07/01/24 12:00 07/01/24 12:00 Narrative Exam GENERAL: no acute distress, AAO x3, well nourished. HEENT: Head AT/ NC. Mucous membranes moist. NECK: Supple, no lymphadenopathy, no carotid bruits. CARDIOVASCULAR: RRR. Normal S1/S2, No m/r/g. No pitting edema of bilateral LEs. RESPIRATORY: CTAB. No wheezing, rhonchi, crackles. GASTROINTESTINAL: Abdomen soft, non tender no palpable masses. Bowel sounds present in all 4 quadrants. MUSCULOSKELETAL:? No cyanosis or edema, no visible joint swelling. NEUROLOGICAL: CN II-XII grossly intact. No focal deficits. Sensation intact, symmetric. PSYCHIATRIC: Awake and alert, not agitated, normal mood and affect. INTEGUMENTARY: No obvious rashes, no jaundice, normal turgor. Objective Labs 07/02/24 04:10 07/02/24 04:10 Labs: Laboratory Results - last 24 hr 06/30/24 07/01/24 10:06 04:53 WBC 9.7 RBC 5.02 Hgb 14.8 Hct 42.7 MCV 85 MCH 29.5 MCHC 34.7 RDW Std Deviation 40.0 Plt Count 300 Neut % (Auto) 62 Lymph % (Auto) 27 [place] % (Auto) 8 Eos % (Auto) 2 Baso % (Auto) 0 Neut # (Auto) 6.0 Lymph # (Auto) 2.6 [place] # (Auto) 0.8 Eos # (Auto) 0.2 Baso # (Auto) 0.0 Immature Gran # (Auto) 0.03 H Absolute Nucleated RBC 0.00 Immature Gran % 0 Nucleated RBC % 0 Sodium 141 Potassium 4.1 Chloride 113 H Carbon Dioxide 19.7 L Anion Gap 8 BUN 28 H Creatinine 1.3 Estim Creat Clear Calc 49.1 L eGFR > 60 BUN/Creatinine Ratio 22 H Glucose 120 H Calculated Osmolality 287 Calcium 8.9 Corrected Calcium 8.9 Phosphorus 3.6 Magnesium 2.2 Total Bilirubin 0.7 AST 15 ALT 23 Alkaline Phosphatase 80 Total Protein 7.1 Albumin 4.2 Globulin 2.9 Albumin/Globulin Ratio 1.4 Coccidioides IgG Ab Negative Coccidioides IgM Ab Negative Quality Measures Quality Measures none Assessment & Plan Assessment Current Active Medications: Generic Name Dose Route Start Last Admin Trade Name Freq PRN Reason Stop Dose Admin Acetaminophen 650 mg 06/26/24 12:06 06/26/24 20:53 Acetaminophen 325 Mg Tablet PO 07/26/24 12:05 650 mg Q6H PRN Administration Mild Pain 1-3 or Fever >100.3 Atorvastatin Calcium 40 mg 06/30/24 21:00 06/30/24 21:55 Atorvastatin Calcium 10 Mg Tablet PO 07/30/24 20:59 40 mg HS JESSE Administration Dapagliflozin 5 mg 06/28/24 09:00 07/01/24 08:21 Dapagliflozin Propanediol 5 Mg Tablet PO 07/28/24 08:59 5 mg QAM JESSE Administration Dextrose 25 ml 06/26/24 12:11 Dextrose 50%-Water Inj 50 Ml Syringe IV 07/26/24 12:10 Q15MIN PRN BG 50-70 responsive npo pt Dextrose 50 ml 06/26/24 12:11 Dextrose 50%-Water Inj 50 Ml Syringe IV 07/26/24 12:10 Q15MIN PRN BG <50 OR BG <70 & pt unresponsive Glucagon 1 mg 06/26/24 12:11 Glucagon Inj 1 Mg Vial IM Q15MIN PRN BG <70, and no IV access Heparin Sodium (Porcine) 5,000 unit 06/26/24 21:00 07/01/24 08:21 Heparin Sod Inj 5000 Unit/Ml Vial SC 07/10/24 20:59 5,000 unit Q12HR JESSE Administration Hydralazine HCl 10 mg 06/30/24 09:23 Hydralazine Inj 20 Mg/Ml Vial IV 07/30/24 09:29 Q6H PRN hypertension Sodium Chloride 500 mls @ 80 mls/hr 07/01/24 08:42 07/01/24 09:46 Ns IV 07/01/24 14:56 80 mls/hr .[id number] ONE Administration Insulin Glargine 22 unit 06/29/24 21:00 06/30/24 22:06 Insulin Glargine (Lantus) 5 Unit/0.05 Ml (Per 5 Units) SC 07/29/24 20:59 Not Given HS JESSE Insulin Human Lispro 0 unit 06/26/24 17:00 07/01/24 11:58 Insulin Lispro (Admelog) 1 Unit/0.01 Ml Unit SC 07/26/24 16:59 Not Given ACHS JESSE Protocol Lactulose 10 gm 07/01/24 09:00 07/01/24 08:20 Lactulose Syrup 20 Gm/30 Ml Udc PO 07/31/24 08:59 10 gm QDAY JESSE Administration Protocol Lisinopril 2.5 mg 07/01/24 09:00 Lisinopril 2.5 Mg Tablet PO 07/31/24 08:59 QDAY JESSE Ondansetron HCl 4 mg 06/26/24 12:06 Ondansetron Inj 2 Mg/Ml Inj 2 Ml IV 07/26/24 12:05 Q6H PRN NAUSEA OR VOMITING Protocol Sennosides 1 tab 06/26/24 12:06 Senna Tablet PO 07/26/24 12:05 QDAY PRN constipation Protocol Plan Patient is a 64-year-old male with a past medical history of diabetes mellitus type 2 insulin-dependent?on glargine 40 units at bedtime?, hypertension, and hyperlipidemia who was admitted for cavitary lesion. #Bilateral Cavitary Lesions #TB r/o BL Cavitary lesions noted on chest and CT chest imaging. Patient remains in isolation while ruling out TB, -Isolation Precautions -Culture AFB 3, sent out, 03/17(-) -Quantifern TB, pending -Aspergillosis -Repeat Cocci(IgM - ) #Diabetes Mellitus Type 2 Insulin Dependent Past medical history of type 2 diabetes mellitus on glargine 40 units HS, Fargixa, and lispro 14 units at home. A1c 9.0 -Glargine 22 units -Fargixa 5 mg PO qday -Lispro sliding scale -diabetic diet #Hyerllipidemia #Hypertension -Atorvastatin 40 mg qday -Lisinopril 2.5 mg qday -Monitor Blood Pressure #Constipation, resolved. -bowel regimen jesse and prn #Incidental finding of, End-stage atrophic left kidney -outpatient f/u Disposition:medsurg DVT prophylaxis: heparin GI prophylaxis: PPI Diet: low carb Lines: PIV CODE STATUS:Full code Patient care was discussed with attending physician Dr. Korina Trinh MD PGY-2 I have carefully reviewed this document. Due to imperfections in the voice software, there could be grammatical errors including phonetic/typographic errors. This in no way compromises the medical care the patient is receiving Attending Provider Attestation/Addendum I reviewed labs, imaging, EKG, home medications and prior available records. Face to face evaluation was performed by me. I have personally examined the patient and discussed assessment and plan with the IM team. I reviewed the resident note and agree with the plan with exceptions as below. Bilateral cavitary lesions Insulin-dependent type 2 diabetes mellitus Essential hypertension Hyperlipidemia 1 AFB is negative. Follow-up the rest of AFBs Follow-up QuantiFERON Cocci IgM is negative Continue insulin and oral DM medications. Monitor fingersticks Consulted ID
[2024-07-01 16:00] VITALS: BP 120/78; PULSE 74; RESP 18; TEMP 36.3; O2SAT 96
[2024-07-01 20:00] VITALS: BP 128/71; PULSE 65; RESP 18; TEMP 36.5; O2SAT 98
[2024-07-01] MEDS: ATORVASTATIN CALCIUM 10 MG TABLET 40 MG PO (20:53)
[2024-07-02] VITALS: BP 125/68; PULSE 60; RESP 18; TEMP 36.4; O2SAT 98
[2024-07-02 04:00] VITALS: BP 119/72; PULSE 61; RESP 16; TEMP 36.5; O2SAT 97
[2024-07-02 05:46] LABS: Basophils % (Auto) 0 % (0-2.5); Eosinophils # (Auto) 0.2 Thou/mm3 (0.0-0.5); Eosinophils % (Auto) 3 % (0-10); Hemoglobin 14.8 g/dL (13.5-16.0); Immature Granulocytes % (Auto) 0 % (0-0); Immature Granulocytes Auto 0.02 Thou/mm3 (0.00-0.00); Lymphocytes # (Auto) 2.4 Thou/mm3 (1.0-4.8); Lymphocytes % (Auto) 30 % (10-50); Mean Corpuscular HGB Conc 34.4 g/dl (31.0-37.0); Mean Corpuscular Hemoglobin 29.5 pg (25.0-35.0); Mean Corpuscular Volume 86 fL (80-100); Monocytes # (Auto) 0.7 Thou/mm3 (0.0-0.8); Monocytes % (Auto) 9 % (0-12); Neutrophils # (Auto) 4.7 Thou/mm3 (1.8-7.7); Neutrophils % (Auto) 58 % (37-80); Nucleated Red Blood Cell % 0 /100 WBC (0); Platelet Count 314 Thou/mm3 (140-440); RDW Standard Deviation 40.1 fL (35.1-43.9); Red Blood Count 5.02 Miln/mm3 (4.50-5.90)
[2024-07-02 06:23] LABS: Alanine Aminotransferase 21 U/L (10-49); Albumin, Serum 4.2 gm/dL (3.4-4.8); Albumin/Globulin Ratio 1.4 (1.2-2.2); Alkaline Phosphatase 82 U/L (46-116); Anion Gap 8 (7-16); Aspartate Amino Transferase 14 U/L (0-34); BUN/Creatinine Ratio 18 Ratio (12-20); Bilirubin,Total 0.6 mg/dL (0.3-1.2); Blood Urea Nitrogen 24 mg/dL (9-23); Calcium 8.9 mg/dL (8.3-10.6); Calcium (Corrected) 8.9 mg/dL (8.5-10.1); Carbon Dioxide 19.8 mMol/L (20.0-31.0); Chloride 112 mMol/L (98-107); Creatinine (Component) 1.3 mg/dL (0.6-1.3); Estimated Creatinine Clearance 49.1 mL/min (>60); Glucose 125 mg/dL (74-106); Magnesium 2.1 mg/dL (1.6-2.6); Osmolality,Calculated 284 (275-295); Phosphorous 3.4 mg/dL (2.4-5.1); Sodium 140 mMol/L (136-145); Total Protein 7.2 gm/dL (5.7-8.2); eGFR > 60 See Note
[2024-07-02 08:00] VITALS: BP 114/93; PULSE 78; RESP 18; TEMP 36.1; O2SAT 98
--- NOTE | 2024-07-02 09:03 | PC.SS ---
SS follow up note; Pending AFB's. patient will discharge home once medically cleared.
[2024-07-02] MEDS: LACTULOSE SYRUP 20 GM/30 ML UDC 10 GM PO (09:44)
[2024-07-02] MEDS: HEPARIN SOD INJ 5000 UNIT/ML VIAL SC ×2 (09:44→20:53)
[2024-07-02] MEDS: DAPAGLIFLOZIN PROPANEDIOL 5 MG TABLET PO (10:18)
[2024-07-02] MEDS: INSULIN LISPRO (AdmeLOG) 1 UNIT/0.01 ML UNIT SC ×2 (11:57→21:15)
[2024-07-02 12:00] VITALS: BP 132/70; PULSE 72; RESP 17; TEMP 36.3; O2SAT 98
--- NOTE | 2024-07-02 13:08 | ESPR_ITS ---
Documentation for date of: 07/02/24 Subjective Subjective Interval history: No overnight events reported. No pyrexia noted overnight. No SOB or chest pain reported. Patient's blood pressure within normal limits. Pending AFB cultures to ruled out TB. Exam Vital Signs Temp Pulse Resp BP Pulse Ox O2 Del Method 97.3 F 72 17 132/70 H 98 Room Air 07/02/24 12:00 07/02/24 12:00 07/02/24 12:00 07/02/24 12:00 07/02/24 12:00 07/02/24 12:00 Narrative Exam General Appearance: Alert & Oriented X3, thin male who is lying in bed in no acute distress. HEENT: Skull symmetrical and atraumatic. Conjunctivae pin and moist. Pupils equal, round, reactive to light and accommodation (PERRL). External ear without lesion or discharge. Straight, nares patient, mucosa pink, no discharge. No thyroid nodule appreciated. No cervical lymphadenopathy. Cardio: Normal Rate and Rhythm with S1 and S2 heart sounds. No murmurs or extra heart sounds auscultated. No bruits on carotid auscultation. No peripheral edema or cyanosis. Lungs: Symmetric with good expansion. Chest and back non-tender. Breath sounds vesicular without crackles, wheezing or rhonchi Abdomen: Non-tender, Non-distended, Normal Reactive Bowel Sounds Neuro: Alert, cooperative, oriented to person, place, and time. Speech clear. CN grossly intact. Upper motor strength 5/5 and Lower motor strength 5/5. Sensation intact. Objective Labs 07/03/24 04:30 07/03/24 04:30 Labs: Laboratory Results - last 24 hr 07/02/24 04:10 WBC 8.0 RBC 5.02 Hgb 14.8 Hct 43.0 MCV 86 MCH 29.5 MCHC 34.4 RDW Std Deviation 40.1 Plt Count 314 Neut % (Auto) 58 Lymph % (Auto) 30 [place] % (Auto) 9 Eos % (Auto) 3 Baso % (Auto) 0 Neut # (Auto) 4.7 Lymph # (Auto) 2.4 [place] # (Auto) 0.7 Eos # (Auto) 0.2 Baso # (Auto) 0.0 Immature Gran # (Auto) 0.02 H Absolute Nucleated RBC 0.00 Immature Gran % 0 Nucleated RBC % 0 Sodium 140 Potassium 4.0 Chloride 112 H Carbon Dioxide 19.8 L Anion Gap 8 BUN 24 H Creatinine 1.3 Estim Creat Clear Calc 49.1 L eGFR > 60 BUN/Creatinine Ratio 18 Glucose 125 H Calculated Osmolality 284 Calcium 8.9 Corrected Calcium 8.9 Phosphorus 3.4 Magnesium 2.1 Total Bilirubin 0.6 AST 14 ALT 21 Alkaline Phosphatase 82 Total Protein 7.2 Albumin 4.2 Globulin 3.0 Albumin/Globulin Ratio 1.4 Quality Measures Quality Measures none Assessment & Plan Assessment Current Active Medications: Generic Name Dose Route Start Last Admin Trade Name Freq PRN Reason Stop Dose Admin Acetaminophen 650 mg 06/26/24 12:06 06/26/24 20:53 Acetaminophen 325 Mg Tablet PO 07/26/24 12:05 650 mg Q6H PRN Administration Mild Pain 1-3 or Fever >100.3 Atorvastatin Calcium 40 mg 06/30/24 21:00 07/01/24 20:53 Atorvastatin Calcium 10 Mg Tablet PO 07/30/24 20:59 40 mg HS CELIO Administration Dapagliflozin 5 mg 06/28/24 09:00 07/02/24 10:18 Dapagliflozin Propanediol 5 Mg Tablet PO 07/28/24 08:59 5 mg QAM CELIO Administration Dextrose 25 ml 06/26/24 12:11 Dextrose 50%-Water Inj 50 Ml Syringe IV 07/26/24 12:10 Q15MIN PRN BG 50-70 responsive npo pt Dextrose 50 ml 06/26/24 12:11 Dextrose 50%-Water Inj 50 Ml Syringe IV 07/26/24 12:10 Q15MIN PRN BG <50 OR BG <70 & pt unresponsive Glucagon 1 mg 06/26/24 12:11 Glucagon Inj 1 Mg Vial IM Q15MIN PRN BG <70, and no IV access Heparin Sodium (Porcine) 5,000 unit 06/26/24 21:00 07/02/24 09:44 Heparin Sod Inj 5000 Unit/Ml Vial SC 07/10/24 20:59 5,000 unit Q12HR CELIO Administration Hydralazine HCl 10 mg 06/30/24 09:23 Hydralazine Inj 20 Mg/Ml Vial IV 07/30/24 09:29 Q6H PRN hypertension Insulin Glargine 22 unit 06/29/24 21:00 07/01/24 20:48 Insulin Glargine (Lantus) 5 Unit/0.05 Ml (Per 5 Units) SC 07/29/24 20:59 Not Given HS CELIO Insulin Human Lispro 0 unit 06/26/24 17:00 07/02/24 11:57 Insulin Lispro (Admelog) 1 Unit/0.01 Ml Unit SC 07/26/24 16:59 1 unit ACHS CELIO Administration Protocol Lactulose 10 gm 07/01/24 09:00 07/02/24 09:44 Lactulose Syrup 20 Gm/30 Ml Udc PO 07/31/24 08:59 10 gm QDAY CELIO Administration Protocol Lisinopril 2.5 mg 07/01/24 09:00 Lisinopril 2.5 Mg Tablet PO 07/31/24 08:59 QDAY CELIO Ondansetron HCl 4 mg 06/26/24 12:06 Ondansetron Inj 2 Mg/Ml Inj 2 Ml IV 07/26/24 12:05 Q6H PRN NAUSEA OR VOMITING Protocol Sennosides 1 tab 06/26/24 12:06 Senna Tablet PO 07/26/24 12:05 QDAY PRN constipation Protocol Plan Patient is a 64-year-old male with a past medical history of diabetes mellitus type 2 insulin-dependent?on glargine 40 units at bedtime?, hypertension, and hyperlipidemia who was admitted for cavitary lesion. #Bilateral Cavitary Lesions #Leukocytosis, resolved. Cavitary lesions noted on chest and CT chest imaging. Patient remains in isolation while ruling out TB, pending Culture AFB 3 and quantiferon TB. Less likely secondary to TB as their is no hempotyisis, pyrexia, or weight loss. Although cocci negative for Ig G and Ig M, cavitary lesions likely secondary to cocci as this is an endemic region and cavitary lesions maybe chronic despite IgM and IgG negative. Less likely secondary to pneumonia as NO crackles or rhonchi on physical exam Plan -Isolation Precautions -Culture AFB 3, sent out -Quantifern TB, pending -Aspergillosis -Repeat Negative, Cocci #Diabetes Mellitus Type 2 Insulin Dependent Past medical history of type 2 diabetes mellitus on glargine 40 units HS, Fargixa, and lispro 14 units at home. A1c 9.0 Plan -Glargine 22 units -Fargixa 5 mg PO qday -Lispro sliding scale #Hyerllipidemia Home medication of rosuvastatin 5 mg, home dose. D/C upon discharge as patient ASCVD score of 13.0%. ASCVD 13.0%, High intensity statins recommended Plan -Atorvastatin 40 mg qday #Hypertension Patient stated he uses Fargixa as a his home medication for his hypertension, although Fargixa is used CKD or diabetic patients. Patient was not sure if he took other medication for hypertension. Plan -Lisinopril 2.5 mg qday -Monitor Blood Pressure #Constipation, resolved. Plan -Senna PRN -lactulose Qday #Incidental finding of, End-stage atrophic left kidney Health Maintenance: Disp: Pt is currently admitted to floors for further management of TB rule out given cavitary lesion ,AFB culture FEN: Low Carb Consistent Low DVT: on subQ heparin Code: Full Code - The patient's plan was discussed with attending Dr. Roderick Bernal MD PGY1 Internal Medicine Attending Provider Attestation/Addendum I reviewed labs, imaging, EKG, home medications and prior available records. Face to face evaluation was performed by me. I have personally examined the patient and discussed assessment and plan with the IM team. I reviewed the resident note and agree with the plan with exceptions as below. Bilateral cavitary lesions Insulin-dependent type 2 diabetes mellitus Essential hypertension Hyperlipidemia 1 AFB is negative. Follow-up the rest of AFBs Follow-up QuantiFERON Cocci IgM is negative Follow-up aspergillosis test Continue insulin and oral DM medications. Monitor fingersticks Consulted ID
[2024-07-02 16:00] VITALS: BP 123/79; PULSE 71; RESP 18; TEMP 36.2; O2SAT 97
[2024-07-02 20:00] VITALS: BP 177/82; PULSE 81; RESP 19; TEMP 36.2; O2SAT 92
[2024-07-02] MEDS: ATORVASTATIN CALCIUM 10 MG TABLET 40 MG PO (20:56)
[2024-07-02] MEDS: INSULIN GLARGINE (Lantus) 5 UNIT/0.05 ML (PER 5 UNITS) 22 UNIT SC (21:14)
[2024-07-02] MEDS: SIMETHICONE 80 MG CHEW PO (22:09)
[2024-07-03] VITALS: BP 122/89; PULSE 82; RESP 17; TEMP 37.3; O2SAT 98
[2024-07-03 04:00] VITALS: BP 119/76; PULSE 69; RESP 16; TEMP 36.4; O2SAT 98
[2024-07-03 06:18] LABS: Basophils % (Auto) 0 % (0-2.5); Eosinophils # (Auto) 0.2 Thou/mm3 (0.0-0.5); Eosinophils % (Auto) 3 % (0-10); Hematocrit 42.9 % (41.0-53.0); Hemoglobin 14.9 g/dL (13.5-16.0); Immature Granulocytes % (Auto) 0 % (0-0); Immature Granulocytes Auto 0.04 Thou/mm3 (0.00-0.00); Lymphocytes # (Auto) 2.5 Thou/mm3 (1.0-4.8); Lymphocytes % (Auto) 27 % (10-50); Mean Corpuscular HGB Conc 34.7 g/dl (31.0-37.0); Mean Corpuscular Hemoglobin 29.6 pg (25.0-35.0); Mean Corpuscular Volume 85 fL (80-100); Monocytes # (Auto) 0.8 Thou/mm3 (0.0-0.8); Monocytes % (Auto) 8 % (0-12); Neutrophils # (Auto) 5.7 Thou/mm3 (1.8-7.7); Neutrophils % (Auto) 62 % (37-80); Nucleated Red Blood Cell % 0 /100 WBC (0); Platelet Count 321 Thou/mm3 (140-440); RDW Standard Deviation 40.1 fL (35.1-43.9); Red Blood Count 5.03 Miln/mm3 (4.50-5.90); White Blood Count 9.2 Thou/mm3 (3.8-10.6)
[2024-07-03 06:47] LABS: Alanine Aminotransferase 21 U/L (10-49); Albumin, Serum 4.2 gm/dL (3.4-4.8); Albumin/Globulin Ratio 1.3 (1.2-2.2); Alkaline Phosphatase 86 U/L (46-116); Anion Gap 9 (7-16); Aspartate Amino Transferase 16 U/L (0-34); BUN/Creatinine Ratio 19 Ratio (12-20); Bilirubin,Total 0.5 mg/dL (0.3-1.2); Blood Urea Nitrogen 23 mg/dL (9-23); Calcium 9.2 mg/dL (8.3-10.6); Calcium (Corrected) 9.2 mg/dL (8.5-10.1); Carbon Dioxide 21.1 mMol/L (20.0-31.0); Chloride 110 mMol/L (98-107); Creatinine (Component) 1.2 mg/dL (0.6-1.3); Estimated Creatinine Clearance 53.2 mL/min (>60); Globulin 3.2 gm/dL (2.3-3.5); Glucose 125 mg/dL (74-106); Osmolality,Calculated 284 (275-295); Potassium 3.8 mMol/L (3.4-5.1); Sodium 140 mMol/L (136-145); Total Protein 7.4 gm/dL (5.7-8.2); eGFR > 60 See Note
[2024-07-03 08:00] VITALS: BP 129/77; PULSE 70; RESP 18; TEMP 36.2; O2SAT 96
--- NOTE | 2024-07-03 08:07 | PD.RESPRO ---
Documentation for date of: 07/03/24 Subjective Subjective Interval history: Overnight events, labs reviewed. The patient examined this a.m. at bedside. The patient has no active complaints. Negative AFB smears x3 and NAAT MTB negative from [facility]. Pending Quantiferon. Exam Vital Signs Temp Pulse Resp BP Pulse Ox O2 Del Method 97.6 F 69 16 119/76 98 Room Air 07/03/24 04:00 07/03/24 04:00 07/03/24 04:00 07/03/24 04:00 07/03/24 04:00 07/03/24 04:00 Narrative Exam General Appearance: Alert & Oriented X3, thin male who is lying in bed in no acute distress. HEENT: Skull symmetrical and atraumatic. Conjunctivae pin and moist. Pupils equal, round, reactive to light and accommodation (PERRL). External ear without lesion or discharge. Straight, nares patient, mucosa pink, no discharge. No thyroid nodule appreciated. No cervical lymphadenopathy. Cardio: Normal Rate and Rhythm with S1 and S2 heart sounds. No murmurs or extra heart sounds auscultated. No bruits on carotid auscultation. No peripheral edema or cyanosis. Lungs: Symmetric with good expansion. Chest and back non-tender. Breath sounds vesicular without crackles, wheezing or rhonchi Abdomen: Non-tender, Non-distended, Normal Reactive Bowel Sounds Neuro: Alert, cooperative, oriented to person, place, and time. Speech clear. CN grossly intact. Upper motor strength 5/5 and Lower motor strength 5/5. Sensation intact. Objective Labs 07/04/24 04:51 07/04/24 04:51 Labs: Laboratory Results - last 24 hr 07/03/24 04:30 WBC 9.2 RBC 5.03 Hgb 14.9 Hct 42.9 MCV 85 MCH 29.6 MCHC 34.7 RDW Std Deviation 40.1 Plt Count 321 Neut % (Auto) 62 Lymph % (Auto) 27 [place] % (Auto) 8 Eos % (Auto) 3 Baso % (Auto) 0 Neut # (Auto) 5.7 Lymph # (Auto) 2.5 [place] # (Auto) 0.8 Eos # (Auto) 0.2 Baso # (Auto) 0.0 Immature Gran # (Auto) 0.04 H Absolute Nucleated RBC 0.00 Immature Gran % 0 Nucleated RBC % 0 Sodium 140 Potassium 3.8 Chloride 110 H Carbon Dioxide 21.1 Anion Gap 9 BUN 23 Creatinine 1.2 Estim Creat Clear Calc 53.2 L eGFR > 60 BUN/Creatinine Ratio 19 Glucose 125 H Calculated Osmolality 284 Calcium 9.2 Corrected Calcium 9.2 Total Bilirubin 0.5 AST 16 ALT 21 Alkaline Phosphatase 86 Total Protein 7.4 Albumin 4.2 Globulin 3.2 Albumin/Globulin Ratio 1.3 Quality Measures Quality Measures none Assessment & Plan Assessment Current Active Medications: Generic Name Dose Route Start Last Admin Trade Name Freq PRN Reason Stop Dose Admin Acetaminophen 650 mg 06/26/24 12:06 06/26/24 20:53 Acetaminophen 325 Mg Tablet PO 07/26/24 12:05 650 mg Q6H PRN Administration Mild Pain 1-3 or Fever >100.3 Atorvastatin Calcium 40 mg 06/30/24 21:00 07/02/24 20:56 Atorvastatin Calcium 10 Mg Tablet PO 07/30/24 20:59 40 mg HS CELIO Administration Dapagliflozin 5 mg 06/28/24 09:00 07/02/24 10:18 Dapagliflozin Propanediol 5 Mg Tablet PO 07/28/24 08:59 5 mg QAM CELIO Administration Dextrose 25 ml 06/26/24 12:11 Dextrose 50%-Water Inj 50 Ml Syringe IV 07/26/24 12:10 Q15MIN PRN BG 50-70 responsive npo pt Dextrose 50 ml 06/26/24 12:11 Dextrose 50%-Water Inj 50 Ml Syringe IV 07/26/24 12:10 Q15MIN PRN BG <50 OR BG <70 & pt unresponsive Glucagon 1 mg 06/26/24 12:11 Glucagon Inj 1 Mg Vial IM Q15MIN PRN BG <70, and no IV access Heparin Sodium (Porcine) 5,000 unit 06/26/24 21:00 07/02/24 20:53 Heparin Sod Inj 5000 Unit/Ml Vial SC 07/10/24 20:59 5,000 unit Q12HR CELIO Administration Hydralazine HCl 10 mg 06/30/24 09:23 Hydralazine Inj 20 Mg/Ml Vial IV 07/30/24 09:29 Q6H PRN hypertension Insulin Glargine 22 unit 06/29/24 21:00 07/02/24 21:14 Insulin Glargine (Lantus) 5 Unit/0.05 Ml (Per 5 Units) SC 07/29/24 20:59 22 unit HS CELIO Administration Insulin Human Lispro 0 unit 06/26/24 17:00 07/03/24 07:54 Insulin Lispro (Admelog) 1 Unit/0.01 Ml Unit SC 07/26/24 16:59 Not Given ACHS CELIO Protocol Lactulose 10 gm 07/01/24 09:00 07/02/24 09:44 Lactulose Syrup 20 Gm/30 Ml Udc PO 07/31/24 08:59 10 gm QDAY CELIO Administration Protocol Lisinopril 2.5 mg 07/01/24 09:00 Lisinopril 2.5 Mg Tablet PO 07/31/24 08:59 QDAY CELIO Ondansetron HCl 4 mg 06/26/24 12:06 Ondansetron Inj 2 Mg/Ml Inj 2 Ml IV 07/26/24 12:05 Q6H PRN NAUSEA OR VOMITING Protocol Sennosides 1 tab 06/26/24 12:06 Senna Tablet PO 07/26/24 12:05 QDAY PRN constipation Protocol Simethicone 80 mg 07/02/24 22:03 07/02/24 22:09 Simethicone 80 Mg Chew PO 08/01/24 22:02 80 mg QID PRN Administration GAS Plan Patient is a 64-year-old male with a past medical history of diabetes mellitus type 2 insulin-dependent?on glargine 40 units at bedtime?, hypertension, and hyperlipidemia who was admitted for cavitary lesion. #Bilateral Cavitary Lesions #Leukocytosis, resolved. Cavitary lesions noted on chest and CT chest imaging. Patient remains in isolation while ruling out TB, pending Culture AFB 3 and quantiferon TB. Less likely secondary to TB as their is no hempotyisis, pyrexia, or weight loss. Although cocci negative for Ig G and Ig M, cavitary lesions likely secondary to cocci as this is an endemic region and cavitary lesions maybe chronic despite IgM and IgG negative. Less likely secondary to pneumonia as NO crackles or rhonchi on physical exam Plan -Isolation Precautions -Culture AFB 3, sent out -Negative AFB smears x3 and NAAT MTB negative from [facility]. Pending Quantiferon. -Aspergillosis -Repeat Negative, Cocci #Diabetes Mellitus Type 2 Insulin Dependent Past medical history of type 2 diabetes mellitus on glargine 40 units HS, Fargixa, and lispro 14 units at home. A1c 9.0 Plan -Glargine 22 units -Fargixa 5 mg PO qday -Lispro sliding scale #Hyerllipidemia Home medication of rosuvastatin 5 mg, home dose. D/C upon discharge as patient ASCVD score of 13.0%. ASCVD 13.0%, High intensity statins recommended Plan -Atorvastatin 40 mg qday #Hypertension Patient stated he uses Fargixa as a his home medication for his hypertension, although Fargixa is used CKD or diabetic patients. Patient was not sure if he took other medication for hypertension. Plan -Lisinopril 2.5 mg qday -Monitor Blood Pressure #Constipation, resolved. Plan -Senna PRN -lactulose Qday #Incidental finding of, End-stage atrophic left kidney Health Maintenance: Disp: Pt is currently admitted to floors for further management of TB rule out given cavitary lesion ,AFB culture FEN: Low Carb Consistent Low DVT: on subQ heparin Code: Full Code - The patient's plan was discussed with attending Dr. Roderick David Pgy2 Internal Medicine Attending Provider Attestation/Addendum I reviewed labs, imaging, EKG, home medications and prior available records. Face to face evaluation was performed by me. I have personally examined the patient and discussed assessment and plan with the IM team. I reviewed the resident note and agree with the plan with exceptions as below. Bilateral cavitary lesions Insulin-dependent type 2 diabetes mellitus Essential hypertension Hyperlipidemia 3 AFBs are negative Follow-up QuantiFERON Cocci IgM is negative Follow-up aspergillosis test Continue home diabetes medications. Continue to monitor fingersticks as outpatient Consulted ID: Okay to release Time spent is 40 minutes. More than 50% of the time was spent on patient education and coordination of care.
[2024-07-03 08:14] LABS: hs-CRP* 1.9 mg/L
[2024-07-03 08:20] LABS: Legionella Ag, EIA, Urine* NOT DETECTED
--- NOTE | 2024-07-03 09:26 | PD.IDPROG ---
Subjective Subjective Interval history: 64 y/o here for tb eval. no wt loss. no fever Exam Vital Signs Temp Pulse Resp BP Pulse Ox O2 Del Method 97.2 F 70 18 129/77 96 Room Air 07/03/24 08:00 07/03/24 08:00 07/03/24 08:00 07/03/24 08:00 07/03/24 08:00 07/03/24 08:00 Narrative Exam benign exam. here for abd pain that appears to have resolved. may have had constipation. Objective - Internal Medicine Labs 07/03/24 04:30 07/03/24 04:30 Labs: Laboratory Results - last 24 hr 06/27/24 06/28/24 06/29/24 05:30 11:44 12:05 WBC RBC Hgb Hct MCV MCH MCHC RDW Std Deviation Plt Count Neut % (Auto) Lymph % (Auto) [place] % (Auto) Eos % (Auto) Baso % (Auto) Neut # (Auto) Lymph # (Auto) [place] # (Auto) Eos # (Auto) Baso # (Auto) Immature Gran # (Auto) Absolute Nucleated RBC Immature Gran % Nucleated RBC % Sodium Potassium Chloride Carbon Dioxide Anion Gap BUN Creatinine Estim Creat Clear Calc eGFR BUN/Creatinine Ratio Glucose Calculated Osmolality Calcium Corrected Calcium Total Bilirubin AST ALT Alkaline Phosphatase Cardiac CRP High Sens 1.9 Total Protein Albumin Globulin Albumin/Globulin Ratio Urine Legionella Ag NOT DETECTED Mycobacterial Culture See Sep Rpt 06/29/24 07/03/24 13:49 04:30 WBC 9.2 RBC 5.03 Hgb 14.9 Hct 42.9 MCV 85 MCH 29.6 MCHC 34.7 RDW Std Deviation 40.1 Plt Count 321 Neut % (Auto) 62 Lymph % (Auto) 27 [place] % (Auto) 8 Eos % (Auto) 3 Baso % (Auto) 0 Neut # (Auto) 5.7 Lymph # (Auto) 2.5 [place] # (Auto) 0.8 Eos # (Auto) 0.2 Baso # (Auto) 0.0 Immature Gran # (Auto) 0.04 H Absolute Nucleated RBC 0.00 Immature Gran % 0 Nucleated RBC % 0 Sodium 140 Potassium 3.8 Chloride 110 H Carbon Dioxide 21.1 Anion Gap 9 BUN 23 Creatinine 1.2 Estim Creat Clear Calc 53.2 L eGFR > 60 BUN/Creatinine Ratio 19 Glucose 125 H Calculated Osmolality 284 Calcium 9.2 Corrected Calcium 9.2 Total Bilirubin 0.5 AST 16 ALT 21 Alkaline Phosphatase 86 Cardiac CRP High Sens Total Protein 7.4 Albumin 4.2 Globulin 3.2 Albumin/Globulin Ratio 1.3 Urine Legionella Ag Mycobacterial Culture See Sep Rpt Assessment & Plan A&P Narrative bi apical cavitary disease, likely old. afb neg x 3. atf pending. cocci neg. other tests pending, cxr with at least L sided cavity. here with no sx otherwise abd pain on arrival, resolved dm, a1c 9.0. needs work htn control dm. home ok . f/u with outpt primary. Time Spent With Patient Time: Total time spent is greater than 50% in coordination of care (as documented) at patient's floor/unit and/or counseling patient:
[2024-07-03] MEDS: HEPARIN SOD INJ 5000 UNIT/ML VIAL SC ×2 (09:41→20:55)
[2024-07-03] MEDS: LACTULOSE SYRUP 20 GM/30 ML UDC 10 GM PO (09:41)
[2024-07-03] MEDS: DAPAGLIFLOZIN PROPANEDIOL 5 MG TABLET PO (09:42)
[2024-07-03] MEDS: SIMETHICONE 80 MG CHEW PO (09:44)
--- NOTE | 2024-07-03 10:46 | PC.IP ---
AFBs X3 results are negative. Notified Arben Brand that pt. may be removed from Airborne Precautions. RN verbalized understanding
--- NOTE | 2024-07-03 11:31 | ESPR_ITS ---
Documentation for date of: 07/03/24 Subjective Subjective Interval history: No overnight events for patient. Patient denied any shortness of breath. Patient continues to have regular bowel movements. AFB culture negative. Pending QFT test. Exam Vital Signs Temp Pulse Resp BP Pulse Ox O2 Del Method 97.2 F 70 18 129/77 96 Room Air 07/03/24 08:00 07/03/24 08:00 07/03/24 08:00 07/03/24 08:00 07/03/24 08:00 07/03/24 08:00 Narrative Exam General Appearance: Alert & Oriented X3, thin male who is lying in bed in no acute distress HEENT: Skull symmetrical and atraumatic. Conjunctivae pin and moist. Pupils equal, round, reactive to light and accommodation (PERRL). External ear without lesion or discharge. Straight, nares patient, mucosa pink, no discharge. No thyroid nodule appreciated. No cervical lymphadenopathy. Cardio: Normal Rate and Rhythm with S1 and S2 heart sounds. No murmurs or extra heart sounds auscultated. No bruits on carotid auscultation. No peripheral edema or cyanosis. Lungs: Symmetric with good expansion. Chest and back non-tender. Breath sounds vesicular without crackles, wheezing or rhonchi Abdomen: Non-tender, Non-distended, Normal Reactive Bowel Sounds Neuro: Alert, cooperative, oriented to person, place, and time. Speech clear. CN grossly intact. Upper motor strength 5/5 and Lower motor strength 5/5. Sensation intact. Objective Labs 07/04/24 04:51 07/04/24 04:51 Labs: Laboratory Results - last 24 hr 06/27/24 06/28/24 06/29/24 05:30 11:44 12:05 WBC RBC Hgb Hct MCV MCH MCHC RDW Std Deviation Plt Count Neut % (Auto) Lymph % (Auto) [place] % (Auto) Eos % (Auto) Baso % (Auto) Neut # (Auto) Lymph # (Auto) [place] # (Auto) Eos # (Auto) Baso # (Auto) Immature Gran # (Auto) Absolute Nucleated RBC Immature Gran % Nucleated RBC % Sodium Potassium Chloride Carbon Dioxide Anion Gap BUN Creatinine Estim Creat Clear Calc eGFR BUN/Creatinine Ratio Glucose Calculated Osmolality Calcium Corrected Calcium Total Bilirubin AST ALT Alkaline Phosphatase Cardiac CRP High Sens 1.9 Total Protein Albumin Globulin Albumin/Globulin Ratio Urine Legionella Ag NOT DETECTED Mycobacterial Culture See Sep Rpt 06/29/24 07/03/24 13:49 04:30 WBC 9.2 RBC 5.03 Hgb 14.9 Hct 42.9 MCV 85 MCH 29.6 MCHC 34.7 RDW Std Deviation 40.1 Plt Count 321 Neut % (Auto) 62 Lymph % (Auto) 27 [place] % (Auto) 8 Eos % (Auto) 3 Baso % (Auto) 0 Neut # (Auto) 5.7 Lymph # (Auto) 2.5 [place] # (Auto) 0.8 Eos # (Auto) 0.2 Baso # (Auto) 0.0 Immature Gran # (Auto) 0.04 H Absolute Nucleated RBC 0.00 Immature Gran % 0 Nucleated RBC % 0 Sodium 140 Potassium 3.8 Chloride 110 H Carbon Dioxide 21.1 Anion Gap 9 BUN 23 Creatinine 1.2 Estim Creat Clear Calc 53.2 L eGFR > 60 BUN/Creatinine Ratio 19 Glucose 125 H Calculated Osmolality 284 Calcium 9.2 Corrected Calcium 9.2 Total Bilirubin 0.5 AST 16 ALT 21 Alkaline Phosphatase 86 Cardiac CRP High Sens Total Protein 7.4 Albumin 4.2 Globulin 3.2 Albumin/Globulin Ratio 1.3 Urine Legionella Ag Mycobacterial Culture See Sep Rpt Quality Measures Quality Measures none Assessment & Plan Assessment Current Active Medications: Generic Name Dose Route Start Last Admin Trade Name Freq PRN Reason Stop Dose Admin Acetaminophen 650 mg 06/26/24 12:06 06/26/24 20:53 Acetaminophen 325 Mg Tablet PO 07/26/24 12:05 650 mg Q6H PRN Administration Mild Pain 1-3 or Fever >100.3 Atorvastatin Calcium 40 mg 06/30/24 21:00 07/02/24 20:56 Atorvastatin Calcium 10 Mg Tablet PO 07/30/24 20:59 40 mg HS CELIO Administration Dapagliflozin 5 mg 06/28/24 09:00 07/03/24 09:42 Dapagliflozin Propanediol 5 Mg Tablet PO 07/28/24 08:59 5 mg QAM CELIO Administration Dextrose 25 ml 06/26/24 12:11 Dextrose 50%-Water Inj 50 Ml Syringe IV 07/26/24 12:10 Q15MIN PRN BG 50-70 responsive npo pt Dextrose 50 ml 06/26/24 12:11 Dextrose 50%-Water Inj 50 Ml Syringe IV 07/26/24 12:10 Q15MIN PRN BG <50 OR BG <70 & pt unresponsive Glucagon 1 mg 06/26/24 12:11 Glucagon Inj 1 Mg Vial IM Q15MIN PRN BG <70, and no IV access Heparin Sodium (Porcine) 5,000 unit 06/26/24 21:00 07/03/24 09:41 Heparin Sod Inj 5000 Unit/Ml Vial SC 07/10/24 20:59 5,000 unit Q12HR CELIO Administration Hydralazine HCl 10 mg 06/30/24 09:23 Hydralazine Inj 20 Mg/Ml Vial IV 07/30/24 09:29 Q6H PRN hypertension Insulin Glargine 22 unit 06/29/24 21:00 07/02/24 21:14 Insulin Glargine (Lantus) 5 Unit/0.05 Ml (Per 5 Units) SC 07/29/24 20:59 22 unit HS CELIO Administration Insulin Human Lispro 0 unit 06/26/24 17:00 07/03/24 07:54 Insulin Lispro (Admelog) 1 Unit/0.01 Ml Unit SC 07/26/24 16:59 Not Given ACHS CELIO Protocol Lactulose 10 gm 07/01/24 09:00 07/03/24 09:41 Lactulose Syrup 20 Gm/30 Ml Udc PO 07/31/24 08:59 10 gm QDAY CELIO Administration Protocol Lisinopril 2.5 mg 07/01/24 09:00 Lisinopril 2.5 Mg Tablet PO 07/31/24 08:59 QDAY CELIO Ondansetron HCl 4 mg 06/26/24 12:06 Ondansetron Inj 2 Mg/Ml Inj 2 Ml IV 07/26/24 12:05 Q6H PRN NAUSEA OR VOMITING Protocol Sennosides 1 tab 06/26/24 12:06 Senna Tablet PO 07/26/24 12:05 QDAY PRN constipation Protocol Simethicone 80 mg 07/02/24 22:03 07/03/24 09:44 Simethicone 80 Mg Chew PO 08/01/24 22:02 80 mg QID PRN Administration GAS Plan Patient is a 64-year-old male with a past medical history of diabetes mellitus type 2 insulin-dependent?on glargine 40 units at bedtime?, hypertension, and hyperlipidemia who was admitted for cavitary lesion. #Bilateral Cavitary Lesions #Leukocytosis, resolved. Cavitary lesions noted on chest and CT chest imaging. Patient remains in isolation while ruling out TB, pending Culture AFB 3 and quantiferon TB. Less likely secondary to TB as their is no hempotyisis, pyrexia, or weight loss. Although cocci negative for Ig G and Ig M, cavitary lesions likely secondary to cocci as this is an endemic region and cavitary lesions maybe chronic despite IgM and IgG negative. Less likely secondary to pneumonia as NO crackles or rhonchi on physical exam 06/24/2024 negative AFB cultures X 3, maybe removed from isolation precautions, if asprergillosis positive, start Voriconazole Plan -Quantifern TB, pending -Aspergillosis -pending -Repeat Negative, Cocci #Diabetes Mellitus Type 2 Insulin Dependent Past medical history of type 2 diabetes mellitus on glargine 40 units HS, Fargixa, and lispro 14 units at home. A1c 9.0 Plan -Glargine 16 units -Fargixa 5 mg PO qday -Lispro sliding scale #Hyerllipidemia Home medication of rosuvastatin 5 mg, home dose. D/C upon discharge as patient ASCVD score of 13.0%. ASCVD 13.0%, High intensity statins recommended Plan -Atorvastatin 40 mg qday #Essential Hypertension Patient stated he uses Fargixa as a his home medication for his hypertension, although Fargixa is used CKD or diabetic patients. Patient was not sure if he took other medication for hypertension. Plan -Lisinopril 2.5 mg qday, holding as BP within normal range -Monitor Blood Pressure #Constipation, resolved. Plan -Senna PRN -lactulose Qday #Incidental finding of, End-stage atrophic left kidney Health Maintenance: Disp: Pt is currently admitted to floors for further management of TB rule out given cavitary lesion ,QTF Gold FEN: Low Carb Consistent Low DVT: on subQ heparin Code: Full Code - The patient's plan was discussed with attending Dr. Roderick Bernal MD PGY1 Attending Provider Attestation/Addendum I reviewed labs, imaging, EKG, home medications and prior available records. Face to face evaluation was performed by me. I have personally examined the patient and discussed assessment and plan with the IM team. I reviewed the resident note and agree with the plan with exceptions as below. Bilateral cavitary lesions Insulin-dependent type 2 diabetes mellitus Essential hypertension Hyperlipidemia 3 AFBs are negative Follow-up QuantiFERON Cocci IgM is negative Follow-up aspergillosis test Continue insulin and oral DM medications. Monitor fingersticks Consulted ID: Okay to release however per Department of Health requirements, will need to wait for QuantiFERON Discussed with utilization review: Insurance is declining the hospital stay however cannot guarantee patient isolation as [place] and frequently interacts with other people and might sleep at their places Tried to contact the insurance company. Left a voicemail
--- NOTE | 2024-07-03 11:33 | ESCONSULT_ITS ---
RE: GUERO SNOW : 1960 DATE OF CONSULTATION: 07/03/2024 REASON FOR CONSULTATION: Apical lung lesions. HISTORY OF PRESENT ILLNESS: The patient has bilateral apical lung lesions seen on imaging. He has no symptoms, no cough, no fever, no chills, no sweats, no weight loss. He is admitted for abdominal pain, which has gone away at this time. He may have had some other problem too, but that is resolved. PAST MEDICAL HISTORY: Include diabetes and hypertension. SURGICAL HISTORY: None. ALLERGIES: NONE NOTED. IMMUNIZATIONS: Last tetanus was less than a year ago in October of last year. He has had flu shot every year. He has had two COVID vaccines and has not had pneumococcal vaccines, but would not be routine for him as he is only 64. FAMILY HISTORY: Positive for diabetes in his mother, brother, and niece. SOCIAL HISTORY: He is a nonsmoker. I did not ask about if he was or single. He sounds as if he may be retired. PHYSICAL EXAMINATION: GENERAL: The patient is not ill-appearing. HEENT: Benign. HEART: Benign. LUNGS: Benign. ABDOMEN: Benign. LABORATORY DATA: He has no cough or respiratory symptoms. He is in isolation for TB, although does not appear to have that. His AFBs were negative. From my prospective, he can probably go home and followup with his primary and all his other tests are pending including aspergillosis antigen. He does not appear to have aspergillosis either. If he has diabetes is somewhat borderline. His kidney function is well preserved with a creatinine of around 1.2. Glucose is fairly low in the 120s to 130s. A1c is noted. ASSESSMENT: 1. Biapical cavitary change without symptoms. 2. Hypertension. 3. Diabetes. RECOMMENDATIONS: The patient may go out of isolation and be released to outpatient followup. He should follow up with others. His other tests for aspergillosis and other processes are pending. I note that his [place] fever tests and QuantiFERON may be pending. Those can take upwards of a week depending on the day of the week that he gets them. The same can be said for the aspergillus antigen. Certainly, if those tests are positive, they should be repeated as a precaution. I see no reason to give him any antibiotics at this time. DT: 09:59:57 TT: 11:03:00 Ref: [id number] - TID: [id number] MTDD
--- NOTE | 2024-07-03 11:38 | ESCONSULT_ITS ---
<Statement entered by Prince Arenas MD - 07/05/24 17:11> pt seen with resident. all findings confirmed. HPI Data of Consult Consult date: 07/03/24 Requesting Physician: Michael Vaughn MD Admitting Provider: Barron Schwartz MD Attending Provider: Michael Vaughn MD Primary Care Provider: Physician No Primary/Family Consult Narrative History of present illness: Mr. Flores is a 64-year-old male with past medical history of type 2 diabetes dependent, hypertension, hyperlipidemia who initially presented to [facility] with the chief complaint of constipation and abdominal tenderness. Patient was attempting to treat at home his constipation and was unable to obtain his motility agents to assist in constipation. In the emergency department patient had a chest CT done which revealed cavitary parenchymal disease of both lung apices with the largest cavity measuring 17 mm in the left upper lobe along with scarring in the leg tubular segment. So patient was admitted for TB rule out and to assess for other infectious causes or autoimmune causes of these cavitary lesions. 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 HEENT: Skull symmetrical and atraumatic. Conjunctivae pin and moist. Pupils equal, round, reactive to light and accommodation (PERRL). External ear without lesion or discharge. Straight, nares patient, mucosa pink, no discharge. No thyroid nodule appreciated. No cervical lymphadenopathy. Cardio: Normal Rate and Rhythm with S1 and S2 heart sounds. No murmurs or extra heart sounds auscultated. No bruits on carotid auscultation. No peripheral edema or cyanosis. Lungs: Symmetric with good expansion. Chest and back non-tender. Breath sounds vesicular without crackles, wheezing or rhonchi Abdomen: Non-tender, Non-distended, Normal Reactive Bowel Sounds Neuro: Alert, cooperative, oriented to person, place, and time. Speech clear. CN grossly intact. Upper motor strength 5/5 and Lower motor strength 5/5. Sensation intact. Results Labs 07/03/24 04:30 07/03/24 04:30 Labs: Short CBC 07/03/24 Range/Units 04:30 WBC 9.2 (3.8-10.6) Thou/mm3 Hgb 14.9 (13.5-16.0) g/dL Hct 42.9 (41.0-53.0) % Plt Count 321 (140-440) Thou/mm3 BMP 07/03/24 04:30 Sodium 140 Potassium 3.8 Chloride 110 H Carbon Dioxide 21.1 BUN 23 Creatinine 1.2 Glucose 125 H Calcium 9.2 Liver Function 07/03/24 Range/Units 04:30 Total Bilirubin 0.5 (0.3-1.2) mg/dL AST 16 (0-34) U/L ALT 21 (10-49) U/L Alkaline Phosphatase 86 (46-116) U/L Albumin 4.2 (3.4-4.8) gm/dL Quality Measures Quality Measures none Medications Home Medications and Allergies Home Medications ?Medication ?Instructions ?Recorded ?Confirmed ?Type metformin 500 mg tablet 500 mg PO QDAY #0 tabs 09/0712/15/17 History (Glucophage) sitagliptin phosphate 100 mg 100 mg PO QDAY #0 tabs 12/15/17 History tablet (Januvia) dapagliflozin propanediol 5 mg 5 mg PO QDAY 06/26/24 0 06/26/24 History tablet (Farxiga) insulin glargine 100 unit/mL 40 unit subcut QPM 06/26/24 History subcutaneous solution (Lantus U-100 Insulin) insulin lispro 100 unit/mL 14 unit subcut TID 06/26/24 06/26/24 History subcutaneous pen (Humalog KwikPen (U-100) Insulin) Allergies Allergy/AdvReac Type Severity Reaction Status Date / Time No Known Allergies Allergy Verified 06/16/24 18:23 Visit Medications Acetaminophen (Acetaminophen 325 Mg Tablet) 650 mg PO Q6H PRN PRN Reason: Mild Pain 1-3 or Fever >100.3 Stop: 07/26/24 12:05 Last Admin: 06/26/24 20:53 Dose: 650 mg Atorvastatin Calcium (Atorvastatin Calcium 10 Mg Tablet) 40 mg PO [facility] Stop: 07/30/24 20:59 Last Admin: 07/02/24 20:56 Dose: 40 mg Dapagliflozin (Dapagliflozin Propanediol 5 Mg Tablet) 5 mg PO QAM [facility] Stop: 07/28/24 08:59 Last Admin: 07/03/24 09:42 Dose: 5 mg Dextrose (Dextrose 50%-Water Inj 50 Ml Syringe) 25 ml IV Q15MIN PRN PRN Reason: BG 50-70 responsive npo pt Stop: 07/26/24 12:10 Dextrose (Dextrose 50%-Water Inj 50 Ml Syringe) 50 ml IV Q15MIN PRN PRN Reason: BG <50 OR BG <70 & pt unresponsive Stop: 07/26/24 12:10 Glucagon (Glucagon Inj 1 Mg Vial) 1 mg IM Q15MIN PRN PRN Reason: BG <70, and no IV access Heparin Sodium (Porcine) (Heparin Sod Inj 5000 Unit/Ml Vial) 5,000 unit SC Q12HR [facility] Stop: 07/10/24 20:59 Last Admin: 07/03/24 09:41 Dose: 5,000 unit Hydralazine HCl (Hydralazine Inj 20 Mg/Ml Vial) 10 mg IV Q6H PRN PRN Reason: hypertension Stop: 07/30/24 09:29 Insulin Glargine (Insulin Glargine (Lantus) 5 Unit/0.05 Ml (Per 5 Units)) 22 unit SC [facility] Stop: 07/29/24 20:59 Last Admin: 07/02/24 21:14 Dose: 22 unit Insulin Human Lispro (Insulin Lispro (Admelog) 1 Unit/0.01 Ml Unit) 0 unit SC [facility]; Protocol Stop: 07/26/24 16:59 Last Admin: 07/03/24 07:54 Dose: Not Given Lactulose (Lactulose Syrup 20 Gm/30 Ml Udc) 10 gm PO QDAY [facility]; Protocol Stop: 07/31/24 08:59 Last Admin: 07/03/24 09:41 Dose: 10 gm Lisinopril (Lisinopril 2.5 Mg Tablet) 2.5 mg PO QDAY [facility] Stop: 07/31/24 08:59 Ondansetron HCl (Ondansetron Inj 2 Mg/Ml Inj 2 Ml) 4 mg IV Q6H PRN; Protocol PRN Reason: NAUSEA OR VOMITING Stop: 07/26/24 12:05 Sennosides (Senna Tablet) 1 tab PO QDAY PRN; Protocol PRN Reason: constipation Stop: 07/26/24 12:05 Simethicone (Simethicone 80 Mg Chew) 80 mg PO QID PRN PRN Reason: GAS Stop: 08/01/24 22:02 Last Admin: 07/03/24 09:44 Dose: 80 mg Discontinued Medications Albuterol/Ipratropium (Albuterol/Ipratropium (Duoneb) Rt Tosin 3 Ml Nebu) 3 ml INH X1 ONE Stop: 06/26/24 03:39 Last Admin: 06/26/24 04:12 Dose: 3 ml Atorvastatin Calcium (Atorvastatin Calcium 10 Mg Tablet) 10 mg PO [facility] Stop: 07/26/24 20:59 Last Admin: 06/29/24 21:52 Dose: 10 mg Azithromycin (Azithromycin 250 Mg Tablet) 500 mg PO QDAY@1400 [facility] Stop: 07/04/24 13:59 Ceftriaxone Sodium/Dextrose (Rocephin/D5w 1gm Iv Premix) 1 gm in 50 mls @ 100 mls/hr IV QDAY@1400 [facility] Stop: 07/03/24 13:22 Last Admin: 06/28/24 13:10 Dose: 100 mls/hr Azithromycin 500 mg/ Sodium (Chloride) 250 mls @ 250 mls/hr IV QDAY@1400 [facility] Stop: 07/04/24 13:59 Last Admin: 06/28/24 13:10 Dose: 250 mls/hr Azithromycin 500 mg/ Sodium (Chloride) 250 mls @ 250 mls/hr IV X1 ONE Stop: 06/26/24 14:44 Last Admin: 06/26/24 17:08 Dose: 250 mls/hr Magnesium Sulfate (Magnesium Sulfate Ivpb) 2 gm in 50 mls @ 25 mls/hr IV X1 ONE Stop: 06/28/24 09:43 Last Admin: 06/28/24 08:56 Dose: 25 mls/hr Sodium Chloride (Ns) 1,000 mls @ 80 mls/hr IV .[id number] ONE Stop: 06/30/24 20:28 Last Admin: 06/30/24 08:15 Dose: 80 mls/hr Sodium Chloride (Ns) 500 mls @ 80 mls/hr IV .Q6H15M ONE Stop: 07/01/24 14:56 Last Admin: 07/01/24 09:46 Dose: 80 mls/hr Insulin Glargine (Insulin Glargine (Lantus) 5 Unit/0.05 Ml (Per 5 Units)) 20 unit SC HS [facility] Stop: 07/26/24 20:59 Last Admin: 06/28/24 21:11 Dose: 20 unit Lactulose (Lactulose Syrup 20 Gm/30 Ml Udc) 10 gm PO QID [facility]; Protocol Stop: 07/26/24 16:59 Last Admin: 06/30/24 17:36 Dose: Not Given Lisinopril (Lisinopril 2.5 Mg Tablet) 2.5 mg PO QDAY [facility] Stop: 07/26/24 13:29 Last Admin: 06/27/24 09:11 Dose: 2.5 mg Lisinopril (Lisinopril 2.5 Mg Tablet) 5 mg PO QDAY [facility] Stop: 07/28/24 08:59 Last Admin: 06/30/24 08:15 Dose: 5 mg Magnesium Hydroxide (Milk Of Magnesia Susp 30 Ml Udc) 30 ml PO QDAY PRN; Protocol PRN Reason: CONSTIPATION Stop: 07/29/24 15:54 Sodium Chloride (Sodium Chloride Rt 10% 15 Ml Nebu) 5 ml INH X1 ONE Stop: 06/26/24 12:17 Last Admin: 06/26/24 14:33 Dose: Not Given Sodium Chloride (Sodium Chloride Rt 10% 15 Ml Nebu) 5 ml INH X1 ONE Stop: 06/26/24 14:44 Sodium Chloride (Sodium Chloride Rt 10% 15 Ml Nebu) 5 ml INH X1 ONE Stop: 06/26/24 14:57 Sodium Chloride (Sodium Chloride Rt 10% 15 Ml Nebu) 15 ml INH X1 ONE Stop: 06/27/24 04:30 Last Admin: 06/27/24 04:37 Dose: 15 ml Sodium Chloride (Sodium Chloride Rt 10% 15 Ml Nebu) 5 ml INH X1 ONE Stop: 06/28/24 10:33 Sodium Chloride (Sodium Chloride Rt 10% 15 Ml Nebu) 5 ml INH X1 ONE Stop: 06/28/24 17:49 Assessment & Plan Plan #Bilateral cavitary lesions #TB rule out Patient had cavitary lesion noted on a rib x-ray in 2021 which at that time appeared to be isolated solitary lesion of the left lung Currently chest CT reveals bilateral cavitary lesions in the lung apices along with scarring in the lingular segment AFBs are negative, IgM IgG for valley fever remains negative Aspergillus testing remains pending and QuantiFERON gold remains pending Patient denies any cough, shortness of breath, fever, night sweats or any other unexpected weight changes May be autoimmune or Aspergillus related Patient to follow-up with primary care physician in regards to results from the testing. Voriconazole is recommended if positive for aspergillosis #Type 2 diabetes insulin-dependent #Hypertension ? Management as per primary team Plan of care discussed with supervising attending Dr Deepa Romero M.D. PGY-3
[2024-07-03 11:44] VITALS: BP 130/78; PULSE 87; RESP 19; TEMP 36.1; O2SAT 96
[2024-07-03] MEDS: INSULIN LISPRO (AdmeLOG) 1 UNIT/0.01 ML UNIT SC (12:58)
--- NOTE | 2024-07-03 15:11 | PC.SS ---
Addendum entered by Elidia James 07/03/24 15:43: SS spoke to patient who confirms he has running water and electricity. He has income for groceries. SS spoke to physician team that states insurance called and denied his stay as of today. Physician to contact insurance for a peer:peer. Original Note: rounding note: Patient TB r/o. Still pending 2 AFB results
[2024-07-03 16:00] VITALS: BP 127/84; PULSE 73; RESP 16; TEMP 36.7; O2SAT 98
[2024-07-03 20:00] VITALS: BP 125/85; PULSE 75; RESP 17; TEMP 36.4; O2SAT 99
[2024-07-03] MEDS: ATORVASTATIN CALCIUM 10 MG TABLET 40 MG PO (20:54)
[2024-07-03] MEDS: INSULIN GLARGINE (Lantus) 5 UNIT/0.05 ML (PER 5 UNITS) 22 UNIT SC (20:59)
[2024-07-03] MEDS: SENNA TABLET 1 TAB PO (20:59)
[2024-07-04] VITALS: BP 116/75; PULSE 71; RESP 18; TEMP 36.8; O2SAT 97
[2024-07-04 04:00] VITALS: BP 125/76; PULSE 67; RESP 18; TEMP 36.8; O2SAT 97
[2024-07-04 06:57] LABS: Basophils % (Auto) 0 % (0-2.5); Eosinophils # (Auto) 0.2 Thou/mm3 (0.0-0.5); Eosinophils % (Auto) 2 % (0-10); Hematocrit 41.6 % (41.0-53.0); Hemoglobin 14.8 g/dL (13.5-16.0); Immature Granulocytes % (Auto) 0 % (0-0); Immature Granulocytes Auto 0.02 Thou/mm3 (0.00-0.00); Lymphocytes # (Auto) 2.1 Thou/mm3 (1.0-4.8); Lymphocytes % (Auto) 25 % (10-50); Mean Corpuscular HGB Conc 35.6 g/dl (31.0-37.0); Mean Corpuscular Hemoglobin 29.8 pg (25.0-35.0); Mean Corpuscular Volume 84 fL (80-100); Monocytes # (Auto) 0.7 Thou/mm3 (0.0-0.8); Monocytes % (Auto) 9 % (0-12); Neutrophils # (Auto) 5.2 Thou/mm3 (1.8-7.7); Neutrophils % (Auto) 64 % (37-80); Nucleated Red Blood Cell % 0 /100 WBC (0); Platelet Count 344 Thou/mm3 (140-440); RDW Standard Deviation 40.1 fL (35.1-43.9); Red Blood Count 4.97 Miln/mm3 (4.50-5.90); White Blood Count 8.2 Thou/mm3 (3.8-10.6)
[2024-07-04 07:07] LABS: Alanine Aminotransferase 18 U/L (10-49); Albumin, Serum 4.3 gm/dL (3.4-4.8); Albumin/Globulin Ratio 1.4 (1.2-2.2); Alkaline Phosphatase 84 U/L (46-116); Anion Gap 8 (7-16); Aspartate Amino Transferase 15 U/L (0-34); BUN/Creatinine Ratio 18 Ratio (12-20); Bilirubin,Total 0.9 mg/dL (0.3-1.2); Blood Urea Nitrogen 21 mg/dL (9-23); Calcium 9.1 mg/dL (8.3-10.6); Calcium (Corrected) 9.1 mg/dL (8.5-10.1); Chloride 111 mMol/L (98-107); Creatinine (Component) 1.2 mg/dL (0.6-1.3); Estimated Creatinine Clearance 53.2 mL/min (>60); Glucose 137 mg/dL (74-106); Osmolality,Calculated 282 (275-295); Potassium 3.7 mMol/L (3.4-5.1); Sodium 139 mMol/L (136-145); Total Protein 7.3 gm/dL (5.7-8.2); eGFR > 60 See Note
[2024-07-04 07:36] LABS: Hepatitis C Antibody Non Reactive (Non React)
[2024-07-04 08:00] VITALS: BP 116/77; PULSE 73; RESP 17; TEMP 36.7; O2SAT 95
[2024-07-04] MEDS: LACTULOSE SYRUP 20 GM/30 ML UDC 10 GM PO (09:07)
[2024-07-04] MEDS: DAPAGLIFLOZIN PROPANEDIOL 5 MG TABLET PO (09:09)
[2024-07-04] MEDS: HEPARIN SOD INJ 5000 UNIT/ML VIAL SC (09:10)
[2024-07-04 10:52] VITALS: BMI 22.1
[2024-07-04] MEDS: INSULIN LISPRO (AdmeLOG) 1 UNIT/0.01 ML UNIT SC (11:53)
[2024-07-04 12:00] VITALS: BP 124/77; PULSE 87; RESP 18; TEMP 36.8; O2SAT 96
[2024-07-04 12:49] LABS: HIV (1&2) Antibody Rapid Non-Reactive
--- NOTE | 2024-07-04 12:51 | PD.RESDS ---
Planned Discharge Date 07/04/24 DS: Providers Provider Date of admission: 06/26/24 09:25 Primary care physician: Physician No Primary/Family Admitting Provider: Barron Schwartz MD Attending Provider on Admission: Michael Vaughn MD Consults: 06/26/24 18:24 [facility] Referral - Transportation Routine Comment: Positive screening for transportation needs. 06/30/24 10:49 Consult to Infectious Diseases Routine Comment: Consulting Provider: Prince Arenas Attending Provider on DC: Kimberley Bernal MD Discharging Provider: Kimberley Bernal MD DS: Diagnosis Problem List Completed Was Problem List Reviewed/Reconciled?: Yes Hospital Course Hospital Course Hospital course: Summary Course: Patient is a 64-year-old male with a past medical history of diabetes mellitus type 2 insulin-dependent?on glargine 40 units at bedtime?, hypertension, and hyperlipidemia who was admitted for cavitary lesion noted on CT chest. ER Course: Vitals 156/83, HR 75, RR 17, T98.5. CBC significant for elevated WBC count of 11.2. Patient CMP within normal limits including sodium, potassium, and bicarb. No ANGELITA noted. GFR greater than 60. Glucose 154. AST and ALT within normal limits. BNP less than 20. Troponin unremarkable. EKG sinus rhythm, QRSD 82, QT corrected 398. No QT elongation noted. CT chest showing cavitary parenchymal disease at both lung apices. Hospital Course: During hospital course kirill was started on antibiotic empically given pneumonia patter on chest x-ray with cavitary lesions and complain of cough and where stopped after three days. Aspergillus Pending. Cocci X2 negative. AFB cultures sent to [facility] and tested negative for any active infection of tuberculosis. QFT results still pending, thus latent TB has not been excluded. Please follow up with your primary doctor for results for Aspergillus and QFT to determine if latent TB treatment is needed. Blood cultures negative after 48 hours. #Bilateral Cavitary Lesions #Leukocytosis, resolved. #Diabetes Mellitus Type 2 Insulin Dependent #Hyerllipidemia #Essential Hypertension - The patient's plan was discussed with attending Dr. Roderick Bernal MD PGY1 Internal Medicine Time Spent with Patient Time attestation: Total time spent providing and/or coordinating discharge services: at least 30 minutes of care and coordination Time spent: Greater than 30 minutes Exam Vital Signs Temp Pulse Resp BP Pulse Ox O2 Del Method 98.0 F 73 17 116/77 95 Room Air 07/04/24 08:00 07/04/24 08:00 07/04/24 08:00 07/04/24 08:00 07/04/24 08:00 07/04/24 08:00 Narrative Exam General Appearance: Alert & Oriented X3, well-nourished male who is lying in bed in no acute distress HEENT: Skull symmetrical and atraumatic. Conjunctivae pin and moist. Pupils equal, round, reactive to light and accommodation (PERRL). External ear without lesion or discharge. Straight, nares patient, mucosa pink, no discharge. No thyroid nodule appreciated. No cervical lymphadenopathy. Cardio: Normal Rate and Rhythm with S1 and S2 heart sounds. No murmurs or extra heart sounds auscultated. No bruits on carotid auscultation. No peripheral edema or cyanosis. Lungs: Symmetric with good expansion. Chest and back non-tender. Breath sounds vesicular without crackles, wheezing or rhonchi Abdomen: Non-tender, Non-distended, Normal Reactive Bowel Sounds Neuro: Alert, cooperative, oriented to person, place, and time. Speech clear. CN grossly intact. Upper motor strength 5/5 and Lower motor strength 5/5. Sensation intact. Discharge Plan Plan Patient Disposition: HOME (Self Care) Care Plan Goals: Instructions: -Please follow with your primary doctor your Quantiferon Test results as they are still pending. Please have your primary doctor request your records to follow up on those results. AFB cultures negative X3. -Please follow up with your primary care provider within one week of discharge -If your symptoms worsen,please seek immediate medical attention and return to your nearest emergency room -If you do not have a primary care provider, you may follow up at the [facility] at [facility] [address], [place] [address], Prescriptions/Referrals Prescriptions/Med Rec: Continued sitagliptin phosphate [Januvia] 100 MG tablet 100 mg PO QDAY Qty: 0 ibuprofen 600 mg tablet 600 mg PO TID Qty: 21 0RF magnesium hydroxide [Milk Of Magnesia Concentrated] 2,400 mg/10 mL suspension 30 ml PO QDAY PRN (Reason: constipation) Qty: 60 0RF sennosides-docusate sodium [Senokot-S] 8.6-50 mg tablet 4 tab-cap PO QDAY PRN (Reason: constipation) Qty: 20 0RF dapagliflozin propanediol [Farxiga] 5 mg tablet 5 mg PO QDAY insulin glargine [Lantus U-100 Insulin] 100 unit/mL solution 40 unit subcut QPM insulin lispro [Humalog KwikPen Insulin] 100 unit/mL insulin pen 14 unit subcut TID meloxicam 7.5 mg tablet 7.5 mg PO QDAY Qty: 14 0RF Discontinued metformin [Glucophage] 500 MG tablet 500 mg PO QDAY Qty: 0 peg 3350-electrolytes [Golytely] 236-22.74-6.74 -5.86 gram recon soln 240 ml PO Q10M Qty: 4000 0RF Rx Instructions: until fecal effluent is clear Referrals: No Primary/Family,Physician [Primary Care Provider] - Patient/Caregiver Discharge Instructions Education Materials: Acid-Fast Bacteria Culture, Tuberculosis Testing Print Language: Macedonian Stand Alone Forms: [employer] Award Info., Patient Portal Info Letter Discharge Order Discharge Orders: Discharge (Routine); Ordered 07/04/24 Ordered By: Kimberley Bernal Quality Discharge Quality Measures none MD Attestestation MD Attestation I reviewed labs, imaging, EKG, home medications and prior available records. Face to face evaluation was performed by me. I have personally examined the patient and discussed assessment and plan with the IM team. I reviewed the resident note and agree with the plan with exceptions as below. Bilateral cavitary lesions Insulin-dependent type 2 diabetes mellitus Essential hypertension Hyperlipidemia 3 AFBs are negative Follow-up QuantiFERON Cocci IgM is negative Follow-up aspergillosis test Continue home diabetes medications Consulted ID: Okay to release. Can follow the rest of the labs as outpatient Time spent is 40 minutes. More than 50% of the time was spent on patient education and coordination of care.
[2024-07-06 17:51] LABS: Index Value <0.50
[2024-07-07 06:58] LABS: Aspergillus Ag, Ser* NOT DETECTED
== END 2024-07-04 13:39 | disposition home or self-care (01) | DRG 144 ==
LOC: SERX 08:07 → SERHOLD 09:46 → S3SX 15:13 → S3NX 06-30 00:19 → S3SX 07-03 19:01
PROVIDERS: Emergency Medicine; Internal Medicine Infectious Disease; Physician Assistant; Student in an Organized Health Care Education/Training Program; Admitting Provider Internal Medicine; Emergency Provider Emergency Medicine; Visit Provider Student in an Organized Health Care Education/Training Program
DX: J98.4 Other disorders of lung (principal); K59.00 Constipation, unspecified; R06.02 Shortness of breath; I12.9 Hypertensive chronic kidney disease with stage 1 through stage 4 chronic kidney disease, or unspecified chronic kidney disease; N18.9 Chronic kidney disease, unspecified; E11.22 Type 2 diabetes mellitus with diabetic chronic kidney disease; E78.5 Hyperlipidemia, unspecified; N26.1 Atrophy of kidney (terminal); J18.9 Pneumonia, unspecified organism; Z79.4 Long term (current) use of insulin; Z79.899 Other long term (current) drug therapy; Z78.9 Other specified health status; Z22.7 Latent tuberculosis
CPT/HCPCS: 36415; 71046; 71250; 74018; 80053; 80061; 83036; 83690; 83735; 83880; 84100; 84484; 85025; 85652; 86140; 86141; 86331; 86480; 86635; 86703; 86803; 87015; 87081; 87116; 87205; 87206; 87305; 87400; 87449; 87502; 87811; 89220; 93005; 94640; 96365; 99285; A9270; J0456; J0696; J1643; J1815; J3475; J7030; J7040; J7050; J8499